=== PATIENT | female | born 1950 | race Caucasian/White ===

== ENCOUNTER → 2021-11-09 | Outpatient (CLI) | payer MEDICARE, SELFPAY ==
[2021-11-09 13:54] LABS: Synovial Fld Mononuclear WBC # 0.486 10^3/ul; Synovial Fld Mononuclear WBC % 61.8 %; Synovial Fld Polynuclear WBC # 0.301 10^3/uL; Synovial Fld Polynuclear WBC % 38.2 %
[2021-11-09 13:58] LABS: RBC /Synovial Fluid 0.003 10^6/uL (0)
[2021-11-09 15:17] LABS: AUTO B FLUID DILUENT BKGD CT WBC <0.1 RBC <0.01 (W<.1,R<.01); Appearance /Synovial Fluid Cloudy (CLEAR); Color / Synovial Fluid Yellow (Pale Yellow); Source / Synovial Fluid R KNEE
[2021-11-09 15:18] LABS: Lymph 6 %; Monocyte /Synovial Fluid 19 %; Neutrophil 35 % (0-25); Other Cell /Synovial Fluid 40 %
[2021-11-09 15:19] LABS: Body Fluid QC Type(s) BF1Q
[2021-11-10 13:18] LABS: Pathologist Comment Reviewed
== END | disposition home or self-care (01) ==
PROVIDERS: PCP Family Medicine; Referring Provider Specialist; Visit Provider Specialist
DX: M25.561 Pain in right knee (principal); M25.461 Effusion, right knee; Z96.651 Presence of right artificial knee joint
CPT/HCPCS: 87015; 87070; 87075; 87101; 87116; 87205; 87206; 89050; 89051

== ENCOUNTER 2023-10-25 11:09 | Inpatient (IN) | payer MEDICARE, SELFPAY ==
[2023-10-25] VITALS (8 sets, daily range): BP systolic 130–159; BP diastolic 57–123; PULSE 32–46; RESP 16–18; TEMP 36.3–36.9; O2SAT 94–98; BMI 41.4; BMI 40.5
--- NOTE | 2023-10-25 11:10 | NURSING ---
NO OLD EKGS
--- NOTE | 2023-10-25 11:32 | RAD_ITS ---
STUDY: X-RAY CHEST REASON FOR EXAM: Female, 73 years old. Near syncope TECHNIQUE: Single AP portable view of the chest. COMPARISON: None. FINDINGS: EKG electrodes are seen. The lungs are clear and expanded. There is no demonstrated pleural abnormality. Normal size heart. Normal mediastinum and jeevan. There is prominence of the pulmonary hilar arteries without peripheral pulmonary vascular congestion, suggesting pulmonary hypertension. There is atherosclerotic calcification of the aortic arch with tortuosity. There are diffuse degenerative changes of the visualized thoracic spine. Normal visualized ribs, clavicles, and shoulders. There is no demonstrated abnormality of the visualized soft tissue structures of the upper abdomen. RAD/Chest 1 View (Portable) IMPRESSION: Prominence of the central pulmonary arteries. Electronically Signed: Joe Guillaume MD at 12:00 EDT ,
--- NOTE | 2023-10-25 11:39 | EX.ED.DYSGE1 ---
HPI History of Present Illness Chief Complaint: Syncope Informant: patient and spouse/S.O. Narrative Narrative: Patient presents to ED referred from PCP office. Intermittent near syncopal episodes for the past few months. States worse with standing. Does not occur all the time. Did have symptoms today. There is been no syncopal episodes. No chest pains or shortness of breath. Saw her PCP today in the office due to symptoms found to heart rate in the 30s. She was sent here for evaluation. History of hypertension and diabetes. She states she does take metoprolol once a day. She takes in the mornings. She denies taking extra doses of this. She last took her metoprolol this morning. She is on 100 mg of metoprolol with no recent changes. She denies taking extra dosing. Prior similar symptoms: No PFSH [facility] Medical History FH: total knee replacement Hypertension Type 1 diabetes Home Medications ?Medication ?Instructions ?Recorded ?Last Taken ?Type atorvastatin 40 mg tablet 40 mg PO DAILY 10/25/23 Unknown History flash glucose scanning reader 10/25/23 Unknown History (FreeStyle Justin 2 [place]) flash glucose sensor (FreeStyle 10/25/23 Unknown History Justin 2 Sensor kit) hydroxyzine HCl 25 mg tablet 25 mg PO BID 10/25/23 Unknown History insulin lispro 100 unit/mL 20 unit subcut TID 10/25/23 Unknown History subcutaneous pen losartan 100 mg tablet 100 mg PO DAILY 10/25/23 Unknown History metoprolol succinate 100 mg 100 mg PO DAILY 10/25/23 Unknown History tablet,extended release 24 hr pantoprazole 40 mg tablet,delayed 40 mg PO DAILY 10/25/23 Unknown History release trazodone 50 mg tablet 50 mg PO QHS 10/25/23 Unknown History venlafaxine 150 mg 75 mg PO DAILY 10/25/23 Unknown History capsule,extended release 24 hr venlafaxine 75 mg capsule,extended 75 mg PO DAILY 10/25/23 Unknown History release 24 hr zolpidem 10 mg tablet 10 mg PO QHS PRN PRN insomnia 10/25/23 Unknown History Allergy/AdvReac Type Severity Reaction Status Date / Time No Known Allergies Allergy Verified 10/25/23 11:09 Family History (Updated 10/25/23 @ 13:[address] Teodoro Mckeon MD) Other Diabetes Family History no significant family his Surgical History H/O: hysterectomy Hx of tonsillectomy Social History Smoking Status: Never smoker ROS ROS ED Constitutional Constitutional ED: Denies chills, fever(s) or sweats Eyes Eyes: Denies change in vision ENT ENT ED: Denies dysphagia or sore throat Cardiovascular Cardiovascular: Reports other Details: Near syncope ; Denies chest pain, leg edema, palpitations or racing heartbeat Respiratory/Chest Respiratory/Chest: Denies cough, dyspnea or dyspnea on exertion Gastrointestinal Gastrointestinal: Denies abdominal pain, diarrhea, nausea or vomiting Genitourinary Genitourinary ED: Denies dysuria, hematuria or urinary frequency Musculoskeletal Musculoskeletal: Denies back pain, extremity pain or neck pain Integumentary Denies rash or wounds Neurologic Neurologic: Denies headache(s), paresthesias or weakness EXAM Physical Exam Const Vital Signs: 10/25/23 11:09 10/25/23 11:13 10/25/23 12:09 Temperature 97.3 F L Temperature Source Temporal Pulse Rate 34 L 39 L Pulse Rate [Lying] Pulse Rate [Sitting (for 1 minute prior to obtaining)] Pulse Rate [Standing (for 1 minute prior to obtaining)] Respiratory Rate 16 18 Respiratory Effort Normal Respiratory Pattern Normal Blood Pressure 158/123 H 130/68 H Blood Pressure [Lying] Blood Pressure [Sitting (for 1 minute prior to obtaining)] Blood Pressure [Standing (for 1 minute prior to obtaining)] Blood Pressure Mean 134 88 Blood Pressure Mean [Lying] Blood Pressure Mean [Sitting (for 1 minute prior to obtaining)] Blood Pressure Mean [Standing (for 1 minute prior to obtaining)] Pulse Ox 94 94 Oxygen Delivery Method Room Air Room Air 10/25/23 12:59 10/25/23 13:00 10/25/23 13:14 Temperature 98 F Temperature Source Pulse Rate 33 L 33 L Pulse Rate [Lying] 32 L Pulse Rate [Sitting (for 1 minute prior to obtaining)] 34 L Pulse Rate [Standing (for 1 minute prior to obtaining)] 40 L Respiratory Rate 16 16 Respiratory Effort Respiratory Pattern Blood Pressure 131/80 H 131/80 H Blood Pressure [Lying] 136/117 H Blood Pressure [Sitting (for 1 minute prior to obtaining)] 139/61 H Blood Pressure [Standing (for 1 minute prior to obtaining)] 159/60 H Blood Pressure Mean 97 97 Blood Pressure Mean [Lying] 123 Blood Pressure Mean [Sitting (for 1 minute prior to obtaining)] 87 Blood Pressure Mean [Standing (for 1 minute prior to obtaining)] 93 Pulse Ox 98 98 Oxygen Delivery Method Room Air Positive well nourished and well developed General Appearance ED: well developed and NAD HEENT Reports moist mucous membranes normocephalic and atraumatic Eyes EOMs intact bilaterally and conjunctivae normal General Eye ED: Yes normal appearance of both eyes; Negative for pale conjunctiva Neck no lymphadenopathy and supple General: Negative for tenderness Chest Wall Chest: Negative for tenderness Resp normal respiratory effort and normal air movement Effort and Inspection: symmetric chest movement; Negative for respiratory distress Cardio regular rhythm and no murmurs Rate: bradycardia Peripheral Pulses: pulses 2+ throughout GI normal to inspection, nondistended, normoactive bowel sounds and non-tender Palpation: Negative for guarding or rebound tenderness present Back/Spine no CVA tenderness and no thoracic nor lumbar tenderness Extremity normal to inspection General Extremety ED: Negative for edema or tenderness General Extremity: Negative for edema Neuro oriented x3, CN's II-XII intact bilaterally and no sensory deficits noted Sensorium / Orientation: awake and alert Skin no rashes or lesions noted and no wounds MDM MDM MDM Narrative Medical decision making narrative: Interventions / MDM: Differential diagnosis: Bradycardia, near syncope Diagnosis considered but do not suspect: N/A My EKG interpretation: Junctional rhythm rate 33. No clear P waves can be appreciated. Imaging independently reviewed and interpreted by myself: 1 view chest x-ray: External documents reviewed: N/A Test considered but not ordered:N/A ED course: Patient bradycardia with intermittent near syncope episodes. Has been no syncopal episodes. Blood pressure stable systolic 140s. EKG regular ventricular escape rhythms. Patient had pacer pads for preparation. She is not symptomatic sitting there. Chest x-ray 1 view, laboratory studies sent. Will discuss with cardiology service. 1220: d/w Dr. Ortega, EKG sent via backline for him to review. Feels this is a junctional bradycardia. Her blood pressure stable recommended admission to medicine service on a monitor. Holding home metoprolol, will eventually need change of her blood pressure medicines. He will follow as a consult. 1255: Lab work notes renal insufficiency creatinine 1.78. GFR of 30. Discussed with patient she states a month ago PCP sin labs and told her she had early kidney disease however we do not know the number for comparison. I will start gentle fluids. She has no recent vomiting or diarrhea. TSH also elevated, free T4 level sent and pending. Will discuss with hospitalist service for admission for bradycardia. Discussed with hospitalist Dr. Mckeon for admission to PCU. Re-evaluation: stable Disposition discussed with patient/family/significant other: Patient and significant other Case discussed with consulting clinician: Cardiology, hospitalist This note was generated with [employer] dictation software. It may contain incorrect words, spelling, and punctuation that were not noted in checking the note before signing. Lab Data Attestation: I reviewed the patient's lab results. Labs: Laboratory Results - last 24 hr 10/25/23 10/25/23 11:28 13:39 WBC 13.5 H RBC 4.68 Hgb 12.8 Hct 40.8 MCV 87.2 MCH 27.4 MCHC 31.4 L RDW Std Deviation 44.5 H RDW Coeff of Betina 13.8 Plt Count 220 MPV 10.8 Immature Gran % (Auto) 1.000 H Neut % (Auto) 80.6 H Lymph % (Auto) 9.4 L [place] % (Auto) 7.2 Eos % (Auto) 1.1 Baso % (Auto) 0.7 Absolute Neuts (auto) 10.9 H Absolute Lymphs (auto) 1.26 Nucleated RBC % 0 PT 14.6 INR 1.1 APTT 30.9 Sodium 139 Potassium 4.8 Chloride 103 Carbon Dioxide 29.0 Anion Gap 7 BUN 42 H Creatinine 1.78 H Estim Creat Clear Calc 31.14 Est GFR (MDRD) Af Amer 36 L Est GFR (MDRD) Non-Af 30 L BUN/Creatinine Ratio 23.6 H Glucose 137 H Calcium 9.4 Magnesium 1.7 TSH 5.920 H Free T4 1.23 Urine Color Straw Urine Clarity Sl. Cloudy Urine pH 6.0 Ur Specific [place] 1.020 Urine Protein 30 H Urine Glucose (UA) Normal Urine Ketones Negative Urine Occult Blood Negative Urine Nitrite Negative Urine Bilirubin 1 H Urine Urobilinogen 1 H Ur Leukocyte Esterase 500 H Urine RBC 0-5 SEEN Urine WBC 25-50 SEEN Ur Squamous Epith Cells 0-5 SEEN Urine Bacteria RARE Urine Mucus 0 SEEN Radiography Diagnostic Testing: Clinical Impression(s) from Imaging Studies Chest X-Ray 10/25/23 11:32 IMPRESSION: Prominence of the central pulmonary arteries. Electronically Signed: Joe Guillaume MD at 12:00 EDT , Discharge Plan Dx/Rx/DC Orders Clinical Impression: Junctional bradycardia, Near syncope, Renal insufficiency, TSH elevation Disposition Disposition: Acute Care Hospital [facility] Discharge Date/Time: 10/25/23 13:52
[2023-10-25 11:42] LABS: Absolute Lymphocyte Count 1.26 X10^3/uL (0.83-4.51); Absolute Neutrophil Count 10.9 X10^3/uL (2.0-7.7); Basophil# 0.09 X10^3/uL; Basophil% 0.7 % (0-1); Eosinophil# 0.15 X10^3/uL; Eosinophils% 1.1 % (0-5); Hematocrit 40.8 % (37-47); Hemoglobin 12.8 g/dL (12.0-15.0); Lymphocyte # 1.26 X10^3/ul (0.83-4.51); Lymphocyte % 9.4 % (19-41); Mean Corp Hgb Conc 31.4 g/dL (32-36); Mean Corpuscular Hgb 27.4 pg (27.0-32.0); Mean Corpuscular Volume 87.2 fL (81-99); Mean Platelet Vol. 10.8 fl (6.2-12.0); Monocyte# 0.97 X10^3/uL; Monocyte% 7.2 % (0-10); NRBC Flagged by Analyzer 0 % (0-5); Neutrophil # 10.87 X10^3/uL (2.7-7.7); Neutrophil % 80.6 % (47-70); Platelet Count 220 K/mm3 (150-450); RBC Distribution Width CV 13.8 % (11.6-14.6); RBC Distribution Width SD 44.5 fl (35.1-43.9); Red Blood Count 4.68 M/mm3 (4.2-5.4); White Blood Count 13.5 K/mm3 (4.4-11.0)
[2023-10-25 11:45] LABS: International Normalized Ratio 1.1; Prothrombin Time (Protime)PT. 14.6 SECONDS (11.7-14.9)
[2023-10-25 11:46] LABS: Partial Thromboplast Time 30.9 Seconds (24.1-36.2)
[2023-10-25 12:35] LABS: Anion Gap 7 (5-15); BUN 42 mg/dL (7-18); BUN/Creat Ratio 23.6 RATIO (10-20); Calcium,Total 9.4 mg/dL (8.5-10.1); Chloride 103 mmol/L (98-107); Creatinine, Serum 1.78 mg/dL (0.55-1.02); EST Glomerular Filtration Rate 30 mL/min (>60); Est Glom Filt Rate - Afr Amer 36 mL/min (>60); Estimated Creatinine Clearance 31.14 ml/min; Glucose 137 mg/dL (74-106); Magnesium 1.7 mg/dL (1.6-2.6); Potassium 4.8 mmol/L (3.5-5.1); Sodium Level 139 mmol/L (136-145)
--- NOTE | 2023-10-25 12:59 | NURSING ---
DR ALKA HERNANDEZ
[2023-10-25] MEDS: 0.9% Normal Saline (1000mL) 1,000 ML 150 ML IV (13:06)
--- NOTE | 2023-10-25 13:15 | NURSING ---
PCU OBS KOBAYONIS JUNCTIONAL BRADYCARDIA, NEAR SYNCOPE
[2023-10-25 13:44] LABS: Mucous, Urine 0 SEEN /hpf (<or=2+)
[2023-10-25 13:49] LABS: Color, Urine Straw (Yellow); Glucose, Dipstick Normal (Normal); Ketone-Dipstick Negative (Negative); Leukocyte Esterase-Dipstick 500 /ul (Negative); Nitrite-Dipstick Negative (Negative); Occult Blood-Urine Negative /ul (Negative); Protein-Dipstick 30 mg/dl (Negative); Urine Clarity Sl. Cloudy (Clear); Urine Urobilinogen 1 mg/dl (Normal)
[2023-10-25 13:50] LABS: T4 Free Direct 1.23 ng/dL (0.76-1.46)
[2023-10-25 13:50] LABS: Urine Bilirubin Dipstick 1 mg/dL (Negative)
--- NOTE | 2023-10-25 13:52 | PCM.HP.STD ---
HPI - General General Date of Admission: 10/25/23 HPI Narrative CHIQUI OSULLIVAN, is a 73 F who presents to the hospital with intermittent near syncopal episodes for the last month or so. She states that she does not get this every day if she is fairly active and it usually last for couple of minutes and it does not even happen multiple times a day. She has not changed any medications recently and states that she does not feel ill, she says that she stays fairly hydrated. We do not have any previous lab work in our system and she says that her doctor told her that she was starting on having early kidney disease but she has noted her creatinine is on the outpatient side. Here today is 1.78. She has not had a full syncopal episode but EKG showed a potential junctional rhythm with no heart block. Orthostatics are unremarkable. She does have a leukocytosis of an unknown etiology at this time, chest x-ray was unremarkable. Will obtain a UA. She is on long-acting metoprolol and losartan both of which will be held. She denies any lightheadedness or dizziness currently she denies any chest pain or shortness of breath. [facility] Medical History FH: total knee replacement Hypertension Type 1 diabetes Home Medications ?Medication ?Instructions ?Recorded ?Last Taken ?Type atorvastatin 40 mg tablet 40 mg PO DAILY 10/25/23 Unknown History flash glucose scanning reader 10/25/23 Unknown History (FreeStyle Justin 2 [place]) flash glucose sensor (FreeStyle 10/25/23 Unknown History Justin 2 Sensor kit) hydroxyzine HCl 25 mg tablet 25 mg PO BID 10/25/23 Unknown History insulin lispro 100 unit/mL 20 unit subcut TID 10/25/23 Unknown History subcutaneous pen losartan 100 mg tablet 100 mg PO DAILY 10/25/23 Unknown History metoprolol succinate 100 mg 100 mg PO DAILY 10/25/23 Unknown History tablet,extended release 24 hr pantoprazole 40 mg tablet,delayed 40 mg PO DAILY 10/25/23 Unknown History release trazodone 50 mg tablet 50 mg PO QHS 10/25/23 Unknown History venlafaxine 150 mg 75 mg PO DAILY 10/25/23 Unknown History capsule,extended release 24 hr venlafaxine 75 mg capsule,extended 75 mg PO DAILY 10/25/23 Unknown History release 24 hr zolpidem 10 mg tablet 10 mg PO QHS PRN PRN insomnia 10/25/23 Unknown History Allergy/AdvReac Type Severity Reaction Status Date / Time No Known Allergies Allergy Verified 10/25/23 11:09 Family History (Updated 10/25/23 @ 13:[address] Teodoro Mckeon MD) Other Diabetes Family History no significant family his Surgical History H/O: hysterectomy Hx of tonsillectomy Social History Smoking Status: Never smoker ROS Constitutional Constitutional: Denies chills, fatigue, fever(s) or malaise Eyes Eyes: Denies blurry vision ENT HEENT: Denies headache(s) or nasal discharge Cardiovascular Cardiovascular: Reports lightheadedness; Denies chest pain, dyspnea on exertion or syncope Respiratory/Chest Respiratory/Chest: Denies cough, shortness of breath at rest or shortness of breath with exertion Gastrointestinal Gastrointestinal: Denies constipation, diarrhea, nausea or vomiting Genitourinary Genitourinary: Denies dysuria Neurologic Neurologic: Reports dizziness; Denies focal weakness, numbness or tremor(s) Psychiatric Psychiatric: Denies anxiety or depression Vital Signs Vital Signs Vital Signs: 10/25/23 11:09 10/25/23 11:13 10/25/23 12:09 Temperature 97.3 F L Temperature Source Temporal Pulse Rate 34 L 39 L Pulse Rate [Lying] Pulse Rate [Sitting (for 1 minute prior to obtaining)] Pulse Rate [Standing (for 1 minute prior to obtaining)] Respiratory Rate 16 18 Respiratory Effort Normal Respiratory Pattern Normal Blood Pressure 158/123 H 130/68 H Blood Pressure [Lying] Blood Pressure [Sitting (for 1 minute prior to obtaining)] Blood Pressure [Standing (for 1 minute prior to obtaining)] Blood Pressure Mean 134 88 Blood Pressure Mean [Lying] Blood Pressure Mean [Sitting (for 1 minute prior to obtaining)] Blood Pressure Mean [Standing (for 1 minute prior to obtaining)] Pulse Ox 94 94 Oxygen Delivery Method Room Air Room Air 10/25/23 12:59 10/25/23 13:00 10/25/23 13:14 Temperature 98 F Temperature Source Pulse Rate 33 L 33 L Pulse Rate [Lying] 32 L Pulse Rate [Sitting (for 1 minute prior to obtaining)] 34 L Pulse Rate [Standing (for 1 minute prior to obtaining)] 40 L Respiratory Rate 16 16 Respiratory Effort Respiratory Pattern Blood Pressure 131/80 H 131/80 H Blood Pressure [Lying] 136/117 H Blood Pressure [Sitting (for 1 minute prior to obtaining)] 139/61 H Blood Pressure [Standing (for 1 minute prior to obtaining)] 159/60 H Blood Pressure Mean 97 97 Blood Pressure Mean [Lying] 123 Blood Pressure Mean [Sitting (for 1 minute prior to obtaining)] 87 Blood Pressure Mean [Standing (for 1 minute prior to obtaining)] 93 Pulse Ox 98 98 Oxygen Delivery Method Room Air Weight Weight: 226 lb 6.636 oz Body Mass Index (BMI) 41.4 Physical Exam Narrative General: Alert, Oriented x3, Cooperative, No apparent distress HEENT: Atraumatic, PERRLA, EOMI, Normocephalic Oral: Moist Mucosa Neck: Supple, No JVD Lungs: Diminished, Normal air movement, No rhonchi, No wheeze, No rales Cardiovascular: Regular rate, Regular Rhythm, Normal S1, Normal S2, No murmurs Abdomen: Soft, Non Tender, Non-Distended, No Hepato-splenomegaly Extremities: No edema, Capillary Refill Less than 3 Seconds Skin: No rashes, No breakdown Musculoskeletal: No Tenderness to Palpation of Joints or Extremities Neurological: No focal neurological deficits, Motor Exam 5/5 strength throughout, Sensory exam intact to light touch and pain Psych/Mental Status: Normal Affect, Appropriate Results Lab / Micro Data 10/25/23 11:28 10/25/23 11:28 Labs: Laboratory Results - last 24 hr 10/25/23 11:28: WBC 13.5 H, RBC 4.68, Hgb 12.8, Hct 40.8, MCV 87.2, MCH 27.4, MCHC 31.4 L, RDW Std Deviation 44.5 H, RDW Coeff of Bet[place] 13.8, Plt Count 220, MPV 10.8, Immature Gran % (Auto) 1.000 H, Neut % (Auto) 80.6 H, Lymph % (Auto) 9.4 L, [place] % (Auto) 7.2, Eos % (Auto) 1.1, Baso % (Auto) 0.7, Absolute Neuts (auto) 10.9 H, Absolute Lymphs (auto) 1.26, Nucleated RBC % 0, PT 14.6, INR 1.1, APTT 30.9, Sodium 139, Potassium 4.8, Chloride 103, Carbon Dioxide 29.0, Anion Gap 7, BUN 42 H, Creatinine 1.78 H, Estim Creat Clear Calc 31.14, Est GFR (MDRD) Af Amer 36 L, Est GFR (MDRD) Non-Af 30 L, BUN/Creatinine Ratio 23.6 H, Glucose 137 H, Calcium 9.4, Magnesium 1.7, TSH 5.920 H, Free T4 1.23 10/25/23 13:39: Urine Color Straw, Urine Clarity Sl. Cloudy, Urine pH 6.0, Ur Specific [place] 1.020, Urine Protein 30 H, Urine Glucose (UA) Normal, Urine Ketones Negative, Urine Occult Blood Negative, Urine Nitrite Negative, Urine Bilirubin 1 H, Urine Urobilinogen 1 H, Ur Leukocyte Esterase 500 H Imaging Radiology Impression Chest X-Ray 10/25/23 11:32 IMPRESSION: Prominence of the central pulmonary arteries. Electronically Signed: Joe Guillaume MD at 12:00 EDT , Assessment & Plan Assessment/Plan (1) Near syncope: PLAN: Plan 1. Near syncope with bradycardia/essential HTN/HLD ? Not orthostatic ? Continue with IV fluids ? Will repeat BMP in the morning to determine whether or not she has an GODFREY or not ? Will hold metoprolol and losartan ? Will obtain an echo ? Monitor blood pressures and make adjustments as necessary ? Continue with Lipitor 2. DM2 ? Continue with her home insulin ? Accu-Cheks ACHS ? Sign scale insulin ? Will monitor make adjustments as necessary 3. GERD ? Stable ? Continue with PPI 4. Anxiety/depression ? Stable ? Continue with Effexor 5. Elevated TSH ? She does not have a history of hypothyroidism ? T4 is pending 6. Leukocytosis ? Unclear etiology ? UA pending DVT: Ambulation 75 minutes was spent on direct patient care, including documentation as well as chart review and collaboration with colleagues Charges/Coding Visit Charges Inpatient E&M: 58129 Init Hosp L3
[2023-10-25 14:01] LABS: Bacteria RARE /hpf (None Seen)
--- NOTE | 2023-10-25 14:01 | ECHOD_ITS ---
Reason For Study: SYNCOPE Procedure This was a 2D Doppler, Color Flow transthoracic echocardiogram. Myocardial strain analysis was performed in this exam to aid in the assessment of cardiac function. Exam performed portable in patient room. Left Ventricle Normal LV size. Severe concentric left ventricular hypertrophy. Left ventricular systolic function is normal. The left ventricular ejection fraction is 70 %. Stage 3 diastolic dysfunction. No regional wall motion abnormalities noted. Right Ventricle Normal RV size. Normal systolic function. Atria Normal left atrium. Normal right atrium. Mitral Valve There is moderate mitral annular calcification. Mild (1+) eccentric mitral valve insufficiency. Tricuspid Valve Normal tricuspid valve. Mild tricuspid valve insufficiency. Pulmonary artery systolic pressure is 21 mmHg. Aortic Valve Trisinus/trileaflet aortic valve. Mild focal aortic valve calcification. Pulmonic Valve Normal pulmonic valve. Great Vessels Normal aortic root. The pulmonary artery is normal size. Normal inferior vena cava. Pericardium/Pleural No pericardial effusion. MMode/2D Measurements & Calculations LVIDd: 4.9 cm IVSd: 1.7 cm LVOT diam: 1.9 cm LVIDs: 2.2 cm LVPWd: 1.5 cm LVOT area: 2.7 cm2 RVDd: 3.4 cm FS: 54.6 % Ao root diam: 3.4 cm LAV(MOD-bp): 58.4 ml LVAd ap4: 18.3 cm2 LAV(MOD-bp) Indexed: 29.0 ml/m2 LVLd ap4: 6.4 cm LAV(MOD-sp2): 69.5 ml EDV(MOD-sp4): 42.1 ml LAV(MOD-sp4): 44.9 ml EDV(sp4-el): 44.2 ml LVAs ap4: 8.2 cm2 LVLs ap4: 5.0 cm ESV(MOD-sp4): 11.6 ml ESV(sp4-el): 11.4 ml EF(MOD-sp4): 72.6 % EF(sp4-el): 74.2 % LVAd ap2: 20.6 cm2 SV(MOD-sp4): 30.6 ml SV(MOD-sp2): 34.4 ml LVLd ap2: 7.1 cm EDV(MOD-sp2): 50.1 ml EDV(sp2-el): 51.0 ml LVAs ap2: 10.2 cm2 LVLs ap2: 5.9 cm ESV(MOD-sp2): 15.7 ml ESV(sp2-el): 15.0 ml EF(MOD-sp2): 68.7 % SV(sp4-el): 32.8 ml LA dimension(2D): 3.8 cm LA A4 area: 16.8 cm2 RA A4 area: 16.3 cm2 TAPSE: 1.4 cm Time Measurements MV dec time: 0.23 sec Doppler Measurements & Calculations MV E max andrew: 137.6 cm/sec Lat Peak E' Andrew: 6.9 cm/sec Med Peak E' Andrew: 5.2 cm/sec MV A max andrew: 20.2 cm/sec E/E' lat: 20.1 E/E' med: 26.7 MV E/A: 6.8 MV V2 max: 132.6 cm/sec Ao V2 max: 141.3 cm/sec MV max P.0 mmHg MV dec slope: 596.7 cm/sec2 Ao max P.0 mmHg MV V2 mean: 45.5 cm/sec Ao V2 mean: 111.3 cm/sec MV mean P.2 mmHg Ao mean P.2 mmHg MV V2 VTI: 52.6 cm Ao V2 VTI: 30.9 cm AV (velocity ratio): 0.92 MVA(VTI): 1.5 cm2 ARELI(I,D): 2.5 cm2 ARELI(V,D): 2.2 cm2 LV V1 max: 111.2 cm/sec SV(LVOT): 77.5 ml PA V2 max: 85.5 cm/sec LV V1 max P.9 mmHg PA max PG (full): 1.7 mmHg LV V1 mean P.8 mmHg LV V1 mean: 76.8 cm/sec LV V1 VTI: 28.3 cm TR max andrew: 215.9 cm/sec TR max P.6 mmHg ECHO/Echo Complete Interpretation Summary Normal LV size. Left ventricular systolic function is normal. The left ventricular ejection fraction is 70 %. Stage 3 diastolic dysfunction. Severe concentric left ventricular hypertrophy. Ordering Physician: Teodoro Mckeon Performed By: Ritika Pinon RDCS
[2023-10-25 14:02] LABS: White Blood Cells 25-50 SEEN /hpf (0-5)
[2023-10-25 14:03] LABS: Red Blood Cells-Urine 0-5 SEEN /hpf (0-5); Squamous Epithelial Cells - UA 0-5 SEEN /hpf (5-10)
[2023-10-25] MEDS: 0.9% Normal Saline (1000mL) 1,000 ML 100 ML IV (14:29)
[2023-10-25] MEDS: Ceftriaxone 1 GM/50 ML BAG IV (14:45)
[2023-10-25 17:06] LABS: Bedside Glucose 55 mg/dL (74-106)
[2023-10-25 17:27] LABS: Bedside Glucose 56 mg/dL (74-106)
[2023-10-25 18:52] LABS: Bedside Glucose 93 mg/dL (74-106)
[2023-10-25] MEDS: Zolpidem Tartrate 5 MG Tablet PO (22:12)
[2023-10-25] MEDS: hydrOXYzine PAM 25 MG Capsule PO (22:12)
[2023-10-25 22:33] LABS: Bedside Glucose 115 mg/dL (74-106)
[2023-10-26] VITALS (9 sets, daily range): BP systolic 133–210; BP diastolic 55–98; PULSE 53–59; RESP 18; TEMP 36.2–36.4; O2SAT 93–96
[2023-10-26] MEDS: hydrALAZINE 20 MG/ML Vial 10 MG IV ×3 (04:42→21:50)
[2023-10-26] MEDS: 0.9% Saline Lock 10 ML Syringe IV (04:43)
[2023-10-26 06:07] LABS: Absolute Lymphocyte Count 1.61 X10^3/uL (0.83-4.51); Absolute Neutrophil Count 7.8 X10^3/uL (2.0-7.7); Basophil# 0.08 X10^3/uL; Basophil% 0.7 % (0-1); Eosinophil# 0.29 X10^3/uL; Eosinophils% 2.7 % (0-5); Hemoglobin 12.8 g/dL (12.0-15.0); Lymphocyte # 1.61 X10^3/ul (0.83-4.51); Lymphocyte % 14.9 % (19-41); Mean Corpuscular Volume 87.5 fL (81-99); Mean Platelet Vol. 10.8 fl (6.2-12.0); Monocyte# 0.95 X10^3/uL; Monocyte% 8.8 % (0-10); NRBC Flagged by Analyzer 0 % (0-5); Neutrophil # 7.83 X10^3/uL (2.7-7.7); Neutrophil % 72.5 % (47-70); Platelet Count 183 K/mm3 (150-450); RBC Distribution Width CV 13.8 % (11.6-14.6); RBC Distribution Width SD 44.4 fl (35.1-43.9); Red Blood Count 4.57 M/mm3 (4.2-5.4); White Blood Count 10.8 K/mm3 (4.4-11.0)
[2023-10-26 07:21] LABS: Anion Gap 7 (5-15); BUN 39 mg/dL (7-18); BUN/Creat Ratio 28.3 RATIO (10-20); Calcium,Total 9.3 mg/dL (8.5-10.1); Chloride 105 mmol/L (98-107); Creatinine, Serum 1.38 mg/dL (0.55-1.02); EST Glomerular Filtration Rate 40 mL/min (>60); Est Glom Filt Rate - Afr Amer 48 mL/min (>60); Estimated Creatinine Clearance 39.69 ml/min; Glucose 37 mg/dL (74-106); Potassium 4.1 mmol/L (3.5-5.1); Sodium Level 138 mmol/L (136-145)
[2023-10-26] MEDS: Pantoprazole Sodium 40 MG Tablet PO (08:25)
[2023-10-26] MEDS: hydrOXYzine PAM 25 MG Capsule PO ×2 (08:25→21:29)
[2023-10-26] MEDS: Venlafaxine XR 75 MG Capsule PO (08:25)
[2023-10-26] MEDS: Ceftriaxone 1 GM/50 ML BAG IV (08:25)
[2023-10-26] MEDS: Atorvastatin Calcium 40 MG Tablet PO (08:25)
--- NOTE | 2023-10-26 08:47 | PN.HOSP_ITS ---
Reason for Visit Reason for Visit: Diagnoses Syncope and collapse (10/25/23) Subjective Subjective Feels ok. Denies complaints. Objective Data Objective Data Vital Signs: Vital Signs Temp Pulse Resp BP Pulse Ox O2 Del Method 36.4 C L 57 L 18 189/72 H 96 Room Air 10/26/23 07:39 10/26/23 07:39 10/26/23 07:39 10/26/23 07:39 10/26/23 07:39 10/26/23 07:39 Oxygen Delivery Method Room Air Weight: 100.6 kg Body Mass Index (BMI) 40.5 Intake & Output: Intake and Output for Last 24 Hours 10/24/23 10/25/23 10/26/23 23:59 23:59 23:59 Intake Total 1442.50 / 1442.50 Balance 1442.50 / 1442.50 Lab / Micro Data Attestation: I reviewed the patient's lab results. 10/26/23 05:55 10/26/23 05:45 Labs: Laboratory Results - last 24 hr 10/25/23 11:28: WBC 13.5 H, RBC 4.68, Hgb 12.8, Hct 40.8, MCV 87.2, MCH 27.4, M CHC 31.4 L, RDW Std Deviation 44.5 H, RDW Coeff of Betina 13.8, Plt Count 220, MPV 10.8, Immature Gran % (Auto) 1.000 H, Neut % (Auto) 80.6 H, Lymph % (Auto) 9.4 L , [place] % (Auto) 7.2, Eos % (Auto) 1.1, Baso % (Auto) 0.7, Absolute Neuts (auto) 10.9 H, Absolute Lymphs (auto) 1.26, Nucleated RBC % 0, PT 14.6, INR 1.1, APTT 30.9, Sodium 139, Potassium 4.8, Chloride 103, Carbon Dioxide 29.0, Anion Gap 7, BUN 42 H, Creatinine 1.78 H, Estim Creat Clear Calc 31.14, Est GFR (MDRD) Af Amer 36 L, Est GFR (MDRD) Non-Af 30 L, BUN/Creatinine Ratio 23.6 H, Glucose 137 H, Calcium 9.4, Magnesium 1.7, TSH 5.920 H, Free T4 1.23 10/25/23 13:39: Urine Color Straw, Urine Clarity Sl. Cloudy, Urine pH 6.0, Ur Specific [place] 1.020, Urine Protein 30 H, Urine Glucose (UA) Normal, Urine Ketones Negative, Urine Occult Blood Negative, Urine Nitrite Negative, Urine Bilirubin 1 H, Urine Urobilinogen 1 H, Ur Leukocyte Esterase 500 H, Urine RBC 0- 5 SEEN, Urine WBC 25-50 SEEN, Ur Squamous Epith Cells 0-5 SEEN, Urine Bacteria RARE, Urine Mucus 0 SEEN 10/25/23 16:48: POC Glucose 55 L 10/25/23 17:10: POC Glucose 56 L 10/25/23 17:38: POC Glucose 93 10/25/23 22:04: POC Glucose 115 H 10/26/23 05:45: Sodium 138, Potassium 4.1, Chloride 105, Carbon Dioxide 26.0, Anion Gap 7, BUN 39 H, Creatinine 1.38 H, Estim Creat Clear Calc 39.69, Est GFR (MDRD) Af Amer 48 L, Est GFR (MDRD) Non-Af 40 L, BUN/Creatinine Ratio 28.3 H, G lucose 37 L*, Calcium 9.3 10/26/23 05:55: WBC 10.8, RBC 4.57, Hgb 12.8, Hct 40.0, MCV 87.5, MCH 28.0, MCHC 32.0, RDW Std Deviation 44.4 H, RDW Coeff of Bet[place] 13.8, Plt Count 183, MPV 10.8, Immature Gran % (Auto) 0.400, Neut % (Auto) 72.5 H, Lymph % (Auto) 14.9 L, [place] % (Auto) 8.8, Eos % (Auto) 2.7, Baso % (Auto) 0.7, Absolute Neuts (auto) 7.8 H, Absolute Lymphs (auto) 1.61, Nucleated RBC % 0 Radiography Diagnostic Testing: Radiology Impression Chest X-Ray 10/25/23 11:32 IMPRESSION: Prominence of the central pulmonary arteries. Electronically Signed: Joe Guillaume MD at 12:00 EDT , Echocardiogram 10/25/23 14:01 Interpretation Summary Normal LV size. Left ventricular systolic function is normal. The left ventricular ejection fraction is 70 %. Stage 3 diastolic dysfunction. Severe concentric left ventricular hypertrophy. Ordering Physician: Teodoro Mckeon Performed By: Ritika Pinon RDCS Rhythm Strip Rhythm Strip: A-fib EKG Follow-up EKG: Attestation: I personally reviewed and interpreted this EKG as follows: Prior EKG tracings: available for review (atrial fibrillation. ) Physical Exam Const alert and no apparent distress HEENT head/scalp atraumatic and moist oral mucous membranes Resp normal respiratory effort, no retractions, no use of accessory muscles and clear to auscultation bilaterally Cardio regular rate, regular rhythm, S1 normal heart sound and S2 normal heart sound GI normal to inspection, nondistended, normoactive bowel sounds, soft to palpation, non-tender and non-distended Extremity normal to inspection and full ROM Neuro Sensorium / Orientation: awake and alert Assessment & Plan Assessment/Plan (1) Near syncope: PLAN: Plan Near syncope with bradycardia/essential * Not orthostatic. Bradycardia * improved * continue to hold metoprolol succinate * Echo shows an EF 70% Atrial fibrillation * Unclear if new. Patient said she has had a h/o ablation years ago in [place], but denies prior h/o afib. Had never been on OAC. * [id number] of 4. I recommended anticoagulation to help mitigate risk of CVA. She was agreeable. Start apixaban. Abnormal UA * unclear if actual UTI. Continue CTX. Follow up UCx. DM2 * Hypoglycemia this AM. * On scheduled log 20 TID, will hold * on SSI Elevated TSH: * FT4: WNL. no additional work up Chronic conditions: * GERD: PPI * Anxiety/depression: Effexor * Elevated TSH DVT: not indicated as pt will be anticoagulated. Disposition: monitor overnight. If does well, then can likely discharge on the . Unclear if she will require metoprolol, but at reduced dosing. Charges/Coding Visit Charges Inpatient E&M: 17207 Subs Hosp L2
[2023-10-26 08:48] LABS: Bedside Glucose 98 mg/dL (74-106)
[2023-10-26] MEDS: Insulin Lispro 100 UNIT/ML INSULN.PEN SC ×3 (11:02→21:34)
[2023-10-26 11:23] LABS: Bedside Glucose 242 mg/dL (74-106)
--- NOTE | 2023-10-26 15:12 | CASEMGMT ---
Met with patient to complete DIAZ form. DIAZ form explained to patient who voiced understanding and signed form. Original form placed in pt?s chart and copy provided to patient. Isha James, Discharge Planning Asst
[2023-10-26 16:45] LABS: Bedside Glucose 389 mg/dL (74-106)
[2023-10-26 17:40] LABS: Hemoglobin A1c 6.8 % (3.8-5.6)
[2023-10-26] MEDS: MENTHOL 226.8 GM JAR 1 APPLIC TOPICAL (21:27)
[2023-10-26] MEDS: traZODone 50 MG Tablet PO (21:29)
[2023-10-26] MEDS: APIXABAN 5 MG TABLET PO (21:29)
[2023-10-26] MEDS: Zolpidem Tartrate 5 MG Tablet PO (21:49)
[2023-10-26] MEDS: Acetaminophen 325 MG Tablet 650 MG PO (21:49)
[2023-10-26 23:04] LABS: Bedside Glucose 204 mg/dL (74-106)
[2023-10-27 03:45] VITALS: BP 199/86; PULSE 82; RESP 18; TEMP 35.6; O2SAT 94
[2023-10-27 04:05] VITALS: BP 199/86; PULSE 86
[2023-10-27] MEDS: hydrALAZINE 20 MG/ML Vial 10 MG IV (04:05)
[2023-10-27] MEDS: 0.9% Saline Lock 10 ML Syringe IV (04:05)
[2023-10-27] MEDS: Levothyroxine 100 MCG Tablet 200 MCG PO (06:37)
[2023-10-27 07:01] LABS: Bedside Glucose 79 mg/dL (74-106)
--- NOTE | 2023-10-27 07:39 | PN.HOSP_ITS ---
Reason for Visit Reason for Visit: Diagnoses Syncope and collapse (10/26/23) Subjective Subjective Feels well. No issues overnight. Objective Data Objective Data Vital Signs: Vital Signs Temp Pulse Resp BP Pulse Ox O2 Del Method 35.6 C L 86 18 199/86 H 94 Room Air 10/27/23 03:45 10/27/23 04:05 10/27/23 03:45 10/27/23 04:05 10/27/23 03:45 10/27/23 03:45 Oxygen Delivery Method Room Air Weight: 100.6 kg Body Mass Index (BMI) 40.5 Intake & Output: Intake and Output for Last 24 Hours 10/25/23 10/26/23 10/27/23 23:59 23:59 23:59 Intake Total 1442.50 / 1442.50 950 / 1200 450 / 450 Balance 1442.50 / 1442.50 950 / 1200 450 / 450 Lab / Micro Data 10/26/23 05:55 10/26/23 05:45 Labs: Laboratory Results - last 24 hr 10/26/23 05:55: Hemoglobin A1c 6.8 H 10/26/23 08:23: POC Glucose 98 10/26/23 10:58: POC Glucose 242 H 10/26/23 16:24: POC Glucose 389 H 10/26/23 21:32: POC Glucose 204 H 10/27/23 06:40: POC Glucose 79 Micro: Microbiology 10/25/23 13:39 Urine, Clean Catch Urine Culture - Final Mixed Gram Pos & Gram Neg Org Rhythm Strip Rhythm Strip: A-fib Physical Exam Const alert and no apparent distress Resp normal respiratory effort, no retractions, no use of accessory muscles and clear to auscultation bilaterally Cardio regular rate, regular rhythm, S1 normal heart sound and S2 normal heart sound GI normal to inspection, nondistended, normoactive bowel sounds, soft to palpation, non-tender and non-distended Extremity no clubbing, cyanosis or edema Neuro Sensorium / Orientation: awake and alert Assessment & Plan Assessment/Plan (1) Near syncope: PLAN: Plan Near syncope * Not orthostatic. May have been due to bradycardia Bradycardia * improved * patient was taking metoprolol succinate 100/d. Will resume, but at a lower dose of 12.5/d * Echo shows an EF 70% HTN accelerated * improved * already on losartan 100. * add amlodipine 5 Atrial fibrillation * Patient now states that she has had afib previously. Unclear if new. Patient said she has had a h/o ablation years ago in [place], but denies prior h/o afib. Had never been on OAC. Has not followed up with cardiology in years, but has plans to see Dr. Ortega * [id number] of 4. I recommended anticoagulation to help mitigate risk of CVA. She was agreeable. Start apixaban. * Resume metoprolol succinate, but at a lower dose, 12.5 (down from 100 given the bradycardia) Abnormal UA * UCx showed mixed organisms. DC abx. DM2 * Hypoglycemia this AM. * On scheduled log 20 TID, will hold * on SSI * a1c 6.8 Elevated TSH: * FT4: WNL. no additional work up Chronic conditions: * GERD: PPI * Anxiety/depression: Effexor * Elevated TSH DVT: not indicated as pt will be anticoagulated. Disposition: to home.
[2023-10-27 08:34] VITALS: BP 158/62; PULSE 84; RESP 16; TEMP 36.4; O2SAT 93
[2023-10-27] MEDS: hydrOXYzine PAM 25 MG Capsule PO (08:36)
[2023-10-27] MEDS: amLODIPine 5 MG Tablet PO (08:36)
[2023-10-27] MEDS: Losartan Potassium 100 MG Tablet PO (08:36)
[2023-10-27] MEDS: APIXABAN 5 MG TABLET PO (08:36)
[2023-10-27] MEDS: Pantoprazole Sodium 40 MG Tablet PO (08:36)
[2023-10-27] MEDS: Venlafaxine XR 75 MG Capsule PO (08:36)
[2023-10-27] MEDS: Atorvastatin Calcium 40 MG Tablet PO (08:37)
[2023-10-27] MEDS: MENTHOL 226.8 GM JAR 1 APPLIC TOPICAL (08:40)
[2023-10-27] MEDS: Acetaminophen 325 MG Tablet 650 MG PO (08:42)
--- NOTE | 2023-10-27 10:22 | CASEMGMT ---
SOPHY BUI Assessment Face to Face with patient for initial transition planning/care coordination assessment. SOPHY BUI introduced self and role at [facility], pt voices understanding. Pt is A&Ox4 and is resting comfortably in bed and is calm. Care providers, pharmacy, and demographics verified. Admitting dx: Bradycardia PCP: Onur Mercedes Specialists: Denies Preferred Pharmacy:[facility] Insurance: [employer] Prescription Benefit: Yes LNOK: Dane Srinivasan (H) Living Arrangements: Pt lives with her in a two story home with two steps to enter ADLs/IADLs: Ind Transportation: Self, . Denies concerns DME: CBGM and a glucometer with supplies. Cane, FWW, and w/c but does not use. Pt is currently 93% on RA. If the pt were to qualify for home oxygen, prefers [employer] (a verbal list of local in-network DME companies were provided). HHC/SNF: States HHC Hx a long time ago after Knee Surgery but does not recall the name of the agency. Denies SNF Hx Pt?s goal: Home Plan: Home with pt and no needs. 6-Click is 23. Pt denies the need for HHC or OP Tx. Pt states that the feels safe discharging home today with no additional needs and denies further questions or concerns. Dulce Ramos RN, CM
--- NOTE | 2023-10-27 11:09 | DS.PCM_ITS ---
Providers Date of Admission: 10/26/23 Primary Care Physician: Dr. Onur Mercedes MD Reason For Visit: JUNCTIONAL BRADYCARDIA, NEAR SYNCOPE Diagnosis Discharge Diagnosis (1) Near syncope: Status: Acute Code(s): R55 - Syncope and collapse Plan Near syncope * Not orthostatic. May have been due to bradycardia Bradycardia * improved * patient was taking metoprolol succinate 100/d. Will resume, but at a lower dose of 12.5/d * Echo shows an EF 70% HTN accelerated * improved * already on losartan 100. * add amlodipine 5 Atrial fibrillation * Patient now states that she has had afib previously. Unclear if new. Patient said she has had a h/o ablation years ago in [place], but denies prior h/o afib. Had never been on OAC. Has not followed up with cardiology in years, but has plans to see Dr. Ortega * [id number] of 4. I recommended anticoagulation to help mitigate risk of CVA. She was agreeable. Start apixaban. * Resume metoprolol succinate, but at a lower dose, 12.5 (down from 100 given the bradycardia) Abnormal UA * UCx showed mixed organisms. DC abx. DM2 * Hypoglycemia this AM. * On scheduled log 20 TID, will hold * on SSI * a1c 6.8 Elevated TSH: * FT4: WNL. no additional work up Chronic conditions: * GERD: PPI * Anxiety/depression: Effexor * Elevated TSH DVT: not indicated as pt will be anticoagulated. Disposition: to home. Medications at Discharge Home Medications atorvastatin 40 mg tablet 40 mg PO DAILY 10/25/23 flash glucose scanning reader (FreeStyle Justin 2 [place]) 10/25/23 flash glucose sensor (FreeStyle Justin 2 Sensor kit) 10/25/23 hydroxyzine HCl 25 mg tablet 25 mg PO BID 10/25/23 losartan 100 mg tablet 100 mg PO DAILY 10/25/23 pantoprazole 40 mg tablet,delayed release 40 mg PO DAILY 10/25/23 trazodone 50 mg tablet 50 mg PO QHS 10/25/23 venlafaxine 150 mg capsule,extended release 24 hr 75 mg PO DAILY 10/25/23 venlafaxine 75 mg capsule,extended release 24 hr 75 mg PO DAILY 10/25/23 zolpidem 10 mg tablet 10 mg PO QHS PRN PRN insomnia 10/25/23 levothyroxine 200 mcg tablet (Synthroid) 200 mcg PO DAILY 10/26/23 amlodipine 5 mg tablet 5 mg PO DAILY #30 tabs 10/27/23 apixaban 5 mg tablet (Eliquis) 5 mg PO BID #60 tabs 10/27/23 insulin lispro 100 unit/mL subcutaneous pen 1 sliding scale dose subcut TID #15 mL 10/27/23 metoprolol succinate 25 mg tablet,extended release 24 hr 12.5 mg (1/2 x 25 mg) PO DAILY #30 tabs 10/27/23 Hospital Course Operations None Procedures 2-D Echocardiogram Summary of Care Provided Minutes Spent on Discharge: 36 Hospital Course: This is a 73-year-old female presents with near syncope. Patient was noted to be bradycardic. Patient's heart rate is in the 30s. Patient was taking 100 mg of metoprolol succinate a day and that was held. Heart rate has since improved into the 80s. Her heart rate has been noted to actually be in atrial fibrillation. Patient initially denied history of atrial fibrillation though did have an ablation in the past but did realize that she previously did have atrial fibrillation. Unclear how long she has been in atrial fibrillation this time as she has not been established with cardiology. Her ablation was approximately 15 years ago. Patient does have a high [id number] score and anticoagulation was recommended and patient has been since started on apixaban. Since her heart rate has increased into the 80s, she will be resumed back on metoprolol succinate but instead of 100, she will be on 12.5 mg daily. She did have an abnormal urinalysis but was multiple organisms and of low CFU so infection was ruled out. Blood pressure has been very labile and she has had accelerated blood pressures in the 200s to the 190s. Patient takes losartan already and she is been started on amlodipine to help with blood pressure management. Patient advised to follow-up with cardiology given her atrial fibrillation. Weight / BMI Weight Weight: 100.6 kg Body Mass Index (BMI) 40.5 ABG / Lab / Microbiology Data 10/26/23 05:55 10/26/23 05:45 Laboratory: Laboratory Results - last 24 hr 10/26/23 05:55: Hemoglobin A1c 6.8 H 10/26/23 10:58: POC Glucose 242 H 10/26/23 16:24: POC Glucose 389 H 10/26/23 21:32: POC Glucose 204 H 10/27/23 06:40: POC Glucose 79 Microbiology: Microbiology 10/25/23 13:39 Urine, Clean Catch Urine Culture - Final Mixed Gram Pos & Gram Neg Org D/C Instructions Discharge Diet: Low fat / Low cholesterol Meaningful Use Info Meaningful Use Meaningful Use Diagnoses (Choose all that apply): None applicable Ischemic Stroke Statin Dosing Therapy Reference: STATIN DOSE THERAPY REFERENCE: * Patients > 75 years receive moderate or high dose statin therapy. * Patients 75 years or YOUNGER should receive HIGH intensity statin dose unless contraindicated. You will be required to document reason for non-treatment if statin daily dose does not meet guidelines. HIGH DOSE STATIN THERAPY DAILY Atorvastatin > than or = to 40 mg Rosuvastatin > than or = to 20 mg Amlodipine + Atorvastatin > than or = to 2.5/40 mg Ezetimibe + Simvastatin 10/80 mg Simvastatin 80mg Discharge Plan Admission Admit Date/Time: 10/26/23 15:27 Primary Reason for Your Visit: Bradycardia Attending Provider: Frank Vazquez Primary Care Provider: Onur Merceeds Consulting Providers: Teodoro Mckeon Instructions Additional Instructions / Restrictions: You had a very low heart rates coming in here because you to almost pass out. This is likely due to the high dose of metoprolol succinate (also known as Toprol-XL). Heart rate is improved since we have stopped that. Will have you resume but at a much lower dose of 12.5 mg daily. Additionally your blood pressure is been very high so we will continue with her losartan but I have also added amlodipine (also known as Norvasc). Because of your atrial fibrillation you are at risk for stroke so he will be started on anticoagulation with apixaban. I do recommend that you follow-up with cardiology for further monitoring and recommendations. Discharge Orders/Prescriptions Prescriptions: New amlodipine 5 mg Tablet 5 mg PO DAILY Qty: 30 0RF Eliquis 5 mg Tablet 5 mg PO BID Qty: 60 0RF metoprolol succinate 25 mg tablet extended release 24 hr 12.5 mg PO DAILY Qty: 30 0RF Continued atorvastatin 40 mg tablet 40 mg PO DAILY trazodone 50 mg tablet 50 mg PO QHS venlafaxine 150 mg capsule,extended release 24hr 75 mg PO DAILY pantoprazole 40 mg tablet,delayed release (DR/EC) 40 mg PO DAILY hydroxyzine HCl 25 mg tablet 25 mg PO BID losartan 100 mg tablet 100 mg PO DAILY zolpidem 10 mg tablet 10 mg PO QHS PRN PRN (Reason: insomnia) venlafaxine 75 mg capsule,extended release 24hr 75 mg PO DAILY (DME) FreeStyle Justin 2 Sensor Kit MISCELLANEOUS Patient Comments: [NO ORIGINAL SIG] (DME) FreeStyle Justin 2 [place] Misc MISCELLANEOUS Patient Comments: [NO ORIGINAL SIG] levothyroxine [Synthroid] 200 mcg tablet 200 mcg PO DAILY Changed insulin lispro 100 unit/mL insulin pen 1 sliding scale dose subcut TID Qty: 15 0RF Rx Instructions: 150-189 mg/dl = 1 unit 190-229 mg/dl = 2 units 230-269 mg/dl = 3 units 270-309 mg/dl = 4 units 310-349 mg/dl = 5 units 350-399 mg/dl = 6 units 400-449 mg/dl = 7 units Discontinued metoprolol succinate 100 mg tablet extended release 24 hr 100 mg PO DAILY Referrals / Follow Up: [facility] [Provider Group] - Within 1 Month Onur Mercedes MD [Primary Care Provider] - Within 2 Weeks Disposition Disposition (needs filled in before D/C Order can be placed): Home, Self Care Charges/Coding Visit Charges Inpatient E&M: 71597 Disch Hosp >30min
--- NOTE | 2023-10-27 11:40 | PHA.DC_ITS ---
Pharmacy [facility] has performed discharge medication reconciliation and counseling for this patient. The patient's discharge medication list was reviewed for discrepancies and discrepancies were resolved. The patient was counseled on the following discharge medications and changes in medications for homegoing were reviewed. 1. ELIQUIS 2. NORVASC 3. TOPROL XL --> DOSE CHANGE The Reason for Use, instructions for use, and potential side effects were reviewed for all new medications. The patient's questions regarding all of their medications were answered. The patient was able to verbally demonstrate an understanding of their discharge medications. Medications at Discharge Home Medications atorvastatin 40 mg tablet 40 mg PO DAILY cholesterol 10/25/23 flash glucose scanning reader ([employer]Style Justin 2 [place]) 10/25/23 flash glucose sensor (FreeStyle Justin 2 Sensor kit) 10/25/23 hydroxyzine HCl 25 mg tablet 25 mg PO BID itching/ anxiety 10/25/23 losartan 100 mg tablet 100 mg PO DAILY blood pressure 10/25/23 pantoprazole 40 mg tablet,delayed release 40 mg PO DAILY acid reflux 10/25/23 trazodone 50 mg tablet 50 mg PO QHS sleep 10/25/23 venlafaxine 150 mg capsule,extended release 24 hr 75 mg PO DAILY 10/25/23 venlafaxine 75 mg capsule,extended release 24 hr 75 mg PO DAILY mood 10/25/23 zolpidem 10 mg tablet 10 mg PO QHS PRN PRN insomnia 10/25/23 levothyroxine 200 mcg tablet (Synthroid) 200 mcg PO DAILY thyroid 10/26/23 amlodipine 5 mg tablet 5 mg PO DAILY #30 tabs 10/27/23 apixaban 5 mg tablet (Eliquis) 5 mg PO BID #60 tabs 10/27/23 insulin lispro 100 unit/mL subcutaneous pen 1 sliding scale dose subcut TID #15 mL 10/27/23 metoprolol succinate 25 mg tablet,extended release 24 hr 12.5 mg (1/2 x 25 mg) PO DAILY #30 tabs 10/27/23
[2023-10-27 11:59] LABS: Bedside Glucose 273 mg/dL (74-106)
--- NOTE | 2023-10-27 12:02 | CASEMGMT ---
Patient has order for discharge. Patient has order for SOPHY Klein CM called [facility], copay is $42. RN HAO in to updated patient regarding Eliquis cost and provided patient with savings card. Patient denied further needs or concerns at discharge.
--- NOTE | 2023-10-27 16:11 | CHAPLAIN ---
Type of Pastoral Visit _x__ Initial Visit ___ Follow-up Visit ___ On-call Visit ___ General Patient Visit ___ Spiritual Assessment ___ Family Conference ___ Bereavement ___ Rapid Response ___ Code Blue ___ Other (describe below) Pastoral Care Referral From _x__ Patient ___ Family ___ Nurse ___ Physician ___ Acoustic Warfare Analyst ___ Printing Pressman ___ Other (describe below) Sacrament/Intervention _x__ Active listening ___ Anointing ___ Zoroastrian _x__ Bereavement ___ Communion _x__ Jackelyn exploration ___ _x__ Life review _x__ Prayer ___ Reconciliation ___ Sacrament of Sick _x__ Supportive presence ___ Wedding ___ Other (describe below) Pastoral Comments patient is willing to have spiritual care support and talks easily about her own recent health issues, her husbands health issues, and the recent of her son-in-law from cancer; pt expresses concern and sadness for her daughter and grandchildren; pt has a good roman catholic support but admits that she has not been in roman catholic for several years due to Covid and health concerns; pt asks for prayers for her family and expresses thanks for the support given today
== END 2023-10-27 12:35 | disposition home or self-care (01) | DRG 309 ==
LOC: ED 13:06 → PCU 13:24
PROVIDERS: Admitting Provider Family Medicine; Emergency Provider Emergency Medicine; PCP Family Medicine
DX: I48.91 Unspecified atrial fibrillation (principal); Z68.41 Body mass index [BMI] 40.0-44.9, adult; E11.9 Type 2 diabetes mellitus without complications; I10 Essential (primary) hypertension; F32.A Depression, unspecified; E66.01 Morbid (severe) obesity due to excess calories; E78.5 Hyperlipidemia, unspecified; K21.9 Gastro-esophageal reflux disease without esophagitis; Z79.4 Long term (current) use of insulin; F41.9 Anxiety disorder, unspecified; I16.0 Hypertensive urgency; Z79.899 Other long term (current) drug therapy
CPT/HCPCS: 36415; 71045; 80048; 81001; 82962; 83036; 83735; 84439; 84443; 85025; 85610; 85730; 87086; 87088; 93005; 93306; 99285; J7030; Q9957; A4216

== ENCOUNTER 2024-01-03 09:20 | Day surgery (SDC) | payer MEDICARE, SELFPAY ==
[2023-12-26 13:41] LABS: Mucous, Urine 0 SEEN /hpf (<or=2+)
[2023-12-26 14:14] LABS: Hemoglobin 13.1 g/dL (12.0-15.0); Mean Corp Hgb Conc 32.8 g/dL (32-36); Mean Corpuscular Hgb 27.8 pg (27.0-32.0); Mean Corpuscular Volume 84.9 fL (81-99); Mean Platelet Vol. 10.9 fl (6.2-12.0); Platelet Count 277 K/mm3 (150-450); RBC Distribution Width CV 14.7 % (11.6-14.6); RBC Distribution Width SD 45.1 fl (35.1-43.9); Red Blood Count 4.71 M/mm3 (4.2-5.4); White Blood Count 12.5 K/mm3 (4.4-11.0)
[2023-12-26 14:40] LABS: Anion Gap 5 (5-15); BUN 27 mg/dL (7-18); BUN/Creat Ratio 19.1 RATIO (10-20); Calcium,Total 9.2 mg/dL (8.5-10.1); Chloride 103 mmol/L (98-107); Creatinine, Serum 1.41 mg/dL (0.55-1.02); EST Glomerular Filtration Rate 39 mL/min (>60); Est Glom Filt Rate - Afr Amer 47 mL/min (>60); Glucose 204 mg/dL (74-106); Potassium 4.5 mmol/L (3.5-5.1); Sodium Level 137 mmol/L (136-145)
[2023-12-26 15:47] LABS: Color, Urine Yellow (Yellow); Glucose, Dipstick 50 mg/dl (Normal); Ketone-Dipstick 5 mg/dl (Negative); Leukocyte Esterase-Dipstick 500 /ul (Negative); Nitrite-Dipstick Positive (Negative); Occult Blood-Urine 25 /ul (Negative); Protein-Dipstick 100 mg/dl (Negative); Specific Gravity, Urine 1.025 (1.002-1.030); Urine Bilirubin Dipstick 1 mg/dL (Negative); Urine Clarity Cloudy (Clear); Urine Urobilinogen 1 mg/dl (Normal)
[2023-12-26 15:48] LABS: Bacteria 2+ /hpf (None Seen); Renal Epithelial Cells 0-5 SEEN /hpf (0-5); Squamous Epithelial Cells - UA 5-10 SEEN /hpf (5-10); Transitional Epithelial - Ur 0-5 SEEN /hpf (0-5)
[2023-12-26 15:49] LABS: Red Blood Cells-Urine 0-5 SEEN /hpf (0-5); White Blood Cells 10-25 SEEN /hpf (0-5)
[2024-01-02 08:20] VITALS: BMI 51.0
== END 2024-01-03 23:59 | disposition home or self-care (01) ==
LOC: CLSP 09:22
PROVIDERS: PCP Family Medicine; Referring Provider Internal Medicine Cardiovascular Disease; Visit Provider Internal Medicine Cardiovascular Disease
DX: Z53.8 Procedure and treatment not carried out for other reasons (principal); I48.91 Unspecified atrial fibrillation; Z79.4 Long term (current) use of insulin; E10.40 Type 1 diabetes mellitus with diabetic neuropathy, unspecified; E03.9 Hypothyroidism, unspecified; F32.A Depression, unspecified; Z79.899 Other long term (current) drug therapy; Z79.01 Long term (current) use of anticoagulants
CPT/HCPCS: 33274; 36415; 80048; 81001; 85027; J7040; Q9967; C1769

== ENCOUNTER → 2024-07-26 | Outpatient (CLI) | payer MEDICARE, SELFPAY | END | disposition home or self-care (01) | PROVIDERS: Referring Provider Nurse Practitioner Gerontology; Visit Provider Nurse Practitioner Gerontology | DX: I48.91 Unspecified atrial fibrillation (principal) | CPT/HCPCS: 93225; 93226 ==

== ENCOUNTER 2025-01-12 07:01 | Inpatient (IN) | payer MEDICARE, SELFPAY ==
[2025-01-12] VITALS (8 sets, daily range): BP systolic 104–246; BP diastolic 63–188; PULSE 77–91; RESP 16–22; TEMP -7.7–37.4; O2SAT 88–100; BMI 39.7
--- NOTE | 2025-01-12 07:12 | ED.VIS.GI ---
HPI HPI - GI History of Present Illness Chief Complaint: Abd Pain Informant: patient and family Abdominal Pain/Flank Pain Onset: Today and Hours Context: Gradual Onset Timing: Continuous Quality: Sharp Location: Epigastric Current Severity: Moderate Maximum Severity: Moderate Worsened by: Nothing Relieved by: Nothing Nausea/Vomiting/Emesis GI Symptom: Positive for Nausea and Vomiting Onset: Today Severity: Mild Diarrhea/Melena/Hematochezia GI Symptom: Negative for Diarrhea, Melena or Hematochezia Associated Symptoms Associated Symptoms: Negative for Dysuria, Hematuria or Urgency Narrative Narrative: 74-year-old female history of A-fib with a pacemaker. History of diabetes. Prior complete hysterectomy. Patient states that last night around midnight about 7 hours ago started having epigastric abdominal pain. Has been constant. Nothing particular makes it better or worse. She has had associated nausea and vomiting. No fever. No diarrhea or constipation. No dysuria. No hematemesis or melena. No recent weight change. She does remember ever having pain like this before. Nothing particular makes the pain better or worse. Prior similar symptoms: No Recent Illness/Hospitalization: No PFSH PFS Medical History (Updated 01/12/25 @ 08:[address] Stephen Lafleur MD) Anxiety Diabetes Kidney stones Non-smoker Persistent atrial fibrillation Urinary incontinence Restless leg syndrome Mild nonproliferative diabetic retinopathy of both eyes Hypothyroid Hypercholesterolemia Hepatic steatosis GERD (gastroesophageal reflux disease) Essential tremor Diabetic neuropathy Depression Class 2 severe obesity due to excess calories with serious comorbidity and body mass index (BMI) of 38.0 to 38.9 in adult Insomnia Paroxysmal atrial fibrillation Syncope and collapse Renal insufficiency FH: total knee replacement Hypertension Type 1 diabetes Home Medications ?Medication ?Instructions ?Recorded ?Last Taken ?Type atorvastatin 40 mg tablet 40 mg PO DAILY cholesterol 10/25/23 Unknown History flash glucose scanning reader 10/25/23 Unknown History (FreeStyle Justin [address]) flash glucose sensor (FreeStyle 10/25/23 Unknown History Justin 2 Sensor kit) losartan 100 mg tablet 100 mg PO DAILY blood pressure 10/25/23 Unknown History pantoprazole 40 mg tablet,delayed 40 mg PO DAILY acid reflux 10/25/23 Unknown History release trazodone 50 mg tablet 50 mg PO QHS sleep 10/25/23 Unknown History levothyroxine 200 mcg tablet 200 mcg PO DAILY thyroid 10/26/23 Unknown History (Synthroid) metoprolol succinate 25 mg 12.5 mg (2 x 25 mg) PO DAILY #30 10/27/23 Unknown Rx tablet,extended release 24 hr tabs cholecalciferol (vitamin D3) 125 125 mcg PO DAILY 11/10/23 Unknown History mcg (5,000 unit) capsule insulin aspart U-100 100 unit/mL 34 unit subcut .COMPLEX 11/10/23 Unknown History (3 mL) subcutaneous pen (Novolog FlexPen U-100 Insulin aspart) multivitamin 1 tab PO DAILY 11/10/23 Unknown History venlafaxine 150 mg 150 mg PO DAILY 11/10/23 Unknown History capsule,extended release 24 hr vitamin B complex 1 tab PO DAILY 11/10/23 Unknown History apixaban 5 mg tablet (Eliquis) 5 mg PO BID #180 tabs 06/18/24 Unknown Rx semaglutide 0.5 mg/0.1 mL 44 mg subcut BID 10/30/24 Unknown History subcutaneous syringe zolpidem 10 mg tablet 5 mg PO QHS insomnia 10/30/24 Unknown History Allergy/AdvReac Type Severity Reaction Status Date / Time No Known Allergies Allergy Verified 01/12/25 07:07 Family History Other Diabetes Surgical History Presence of cardiac pacemaker (08/03/24) H/O: hysterectomy Hx of tonsillectomy Social History Smoking Status: Never smoker ROS ROS ED ROS Narrative Epigastric abdominal pain. Nausea vomiting. Otherwise no recent illness. Constitutional Constitutional ED: Denies fever(s) ENT ENT ED: Denies ear pain Cardiovascular Cardiovascular: Denies chest pain Respiratory/Chest Respiratory/Chest: Denies cough or dyspnea Gastrointestinal Gastrointestinal: Reports abdominal pain, nausea and vomiting; Denies constipation, diarrhea or melena Genitourinary Genitourinary ED: Denies dysuria or hematuria Musculoskeletal Musculoskeletal: Denies arthralgias Integumentary Denies abscess Neurologic Neurologic: Denies headache(s) Psychiatric Psychiatric: Denies anxiety Endocrine Endocrinology: Denies polydipsia Hematologic/Lymphatic Hematologic/Lymphatic: Denies easy bleeding, easy bruising or lymphadenopathy Allergic/Immunologic Allergic/Immunologic ED: Denies mouth swelling, tongue swelling or urticaria EXAM Physical Exam Narrative Exam Narrative: 74-year-old female vital signs are stable. Afebrile. Elevated blood pressure. No distress. HEENT exam pupils round react light. Moist mutes membranes. Lungs clear to auscultation bilaterally. Heart rate 77 no murmur. Chest wall ribs nontender. Abdomen soft nondistended normal bowel sounds. No peritoneal signs. She does have epigastric and mild right upper quadrant tenderness. No Kirkland sign. Right lower quadrants are unremarkable. No pulsatile mass. No obstruction. Moving all 4 extremities. Nontender no edema. Normal strength. She is awake and alert. Answering questions and following commands. Const Vital Signs: 01/12/25 07:03 01/12/25 08:52 Temperature 98.1 F Temperature Source Oral Pulse Rate 77 Respiratory Rate 22 H Blood Pressure 246/97 H 198/188 H Blood Pressure Mean 146 191 Pulse Ox 98 Oxygen Delivery Method Room Air MDM MDM MDM Narrative Medical decision making narrative: 74-year-old female upper abdominal pain began last night's been going on now over 7 hours. Should be given IV morphine for pain and Zofran. Screening labs and a CAT scan of the obtained. Differential would include gastritis, pancreatitis, gallbladder disease versus other etiologies. Repeat exam patient is doing well around 8:50 AM. Pains much better after the morphine. Blood pressure be repeated. IV Zosyn is been written for. CAT scan labs are consistent with acute cholecystitis. I spoke to general surgeon on-call Dr. Rcihy Cano. Either he or the hospitalist will admit the patient. And he will plan on eventually taking her gallbladder out. Patient will be admitted by the general surgeon with a consult to the hospitalist to help manage her blood pressure. History & Record Review Discussion w/independent historian: Patient Additional record(s) reviewed:: Prior inpatient record, Prior outpatient record, Prior ED visit and Prior labs Lab Data Attestation: I reviewed the patient's lab results. Lab results narrative: CBC shows a white count 22.1. H&H of 14 and 42. Platelets 238. 90% neutrophils. Chemistries show a sodium 135. Gap 15. BUN and creatinine 26 and 1. Glucose 233. Liver enzymes show an alk phos of 106. Lipase is normal at 19. UA is normal. No white or red cells. No nitrites nor bacteria. Labs: Laboratory Results - last 24 hr 01/12/25 01/12/25 07:14 07:50 WBC 22.1 H RBC 5.04 Hgb 14.3 Hct 42.3 MCV 83.9 MCH 28.4 MCHC 33.8 RDW Std Deviation 40.2 RDW Coeff of Betina 13.2 Plt Count 238 MPV 10.1 Immature Gran % (Auto) 0.400 Neut % (Auto) 90.6 H Lymph % (Auto) 5.2 L [place] % (Auto) 3.2 Eos % (Auto) 0.1 Baso % (Auto) 0.5 Absolute Neuts (auto) 20.0 H Absolute Lymphs (auto) 1.16 Nucleated RBC % 0 Sodium 135 Potassium 4.4 Chloride 94 L Carbon Dioxide 26.0 Anion Gap 15 BUN 26 H Creatinine 1.02 Estim Creat Clear Calc 52.29 Est GFR (MDRD) Non-Af 57 L BUN/Creatinine Ratio 25.3 H Glucose 233 H Calcium 10.0 Total Bilirubin 0.53 AST 31 ALT 16 Alkaline Phosphatase 106 H Total Protein 8.5 H Albumin 4.4 Globulin 4.1 Albumin/Globulin Ratio 1.1 Lipase 19 Urine Color Yellow Urine Clarity Clear Urine pH 7.0 Ur Specific [place] 1.010 Urine Protein 100 H Urine Glucose (UA) 1000 H Urine Ketones Negative Urine Occult Blood 25 H Urine Nitrite Negative Urine Bilirubin Negative Urine Urobilinogen Normal Ur Leukocyte Esterase Negative Urine RBC 0-5 SEEN Urine WBC 0-5 SEEN Ur Squamous Epith Cells 0-5 SEEN Urine Bacteria 0 SEEN Urine Mucus 0 SEEN Radiography Diagnostic Testing: Clinical Impression(s) from Imaging Studies Abdomen/Pelvis CT 01/12/25 08:05 IMPRESSION: 1. Gallbladder wall thickening and sludge is seen. No high-density calculus identified. Correlate with physical exam. Consider cholecystitis. Ultrasound may be helpful if clinically desired. 2. Small sliding hiatus hernia. 3. Lower lumbar degenerative disc disease with grade 1 anterolisthesis L4 on L5. No pars defects. Reading Location: [id number] Discharge Plan Dx/Rx/DC Orders Clinical Impression: Abdominal pain, Acute cholecystitis, Leukocytosis, History of atrial fibrillation, History of diabetes mellitus, Hypertension Disposition Disposition: Acute Care Hospital [facility]
[2025-01-12 07:26] LABS: Hematocrit 42.3 % (37-47); Hemoglobin 14.3 g/dL (12.0-15.0); Immature Granulocytes Count 0.080 X10^3/uL (0.0-0.0); Mean Corp Hgb Conc 33.8 g/dL (32-36); Mean Corpuscular Volume 83.9 fL (81-99); Mean Platelet Vol. 10.1 fl (6.2-12.0); NRBC Flagged by Analyzer 0 % (0-5); POSITIVE DIFFERENTIAL YES; Platelet Count 238 K/mm3 (150-450); RBC Distribution Width CV 13.2 % (11.6-14.6); RBC Distribution Width SD 40.2 fl (35.1-43.9); Red Blood Count 5.04 M/mm3 (4.2-5.4); White Blood Count 22.1 K/mm3 (4.4-11.0)
[2025-01-12 07:35] LABS: Differential Indicated SCAN CRITERIA MET
[2025-01-12 07:52] LABS: Lipase 19 U/L (13-75)
[2025-01-12 07:54] LABS: AST(SGOT) 31 U/L (<=31); Alanine Aminotransfer ALT/SGPT 16 U/L (<=34); Albumin, Serum 4.4 g/dL (3.4-4.8); Alkaline Phosphatase 106 U/L (35-104); Anion Gap 15 (5-15); BUN 26 mg/dL (4-19); BUN/Creat Ratio 25.3 RATIO (10-20); Calcium,Total 10.0 mg/dL (7.6-11.0); Carbon Dioxide 26.0 mmol/L (21.0-32.0); Chloride 94 mmol/L (98-108); Estimated Creatinine Clearance 52.29 ml/min (50-250); Globulin 4.1 g/dL (2.2-4.2); Glucose 233 mg/dL (70-99); Potassium 4.4 mmol/L (3.3-5.1)
[2025-01-12 07:58] LABS: Mucous, Urine 0 SEEN /hpf (<or=2+)
--- NOTE | 2025-01-12 08:05 | CT_ITS ---
PROCEDURE: CT/Abdomen/Pelvis W IV Cont ONLY
[2025-01-12 08:09] LABS: Color, Urine Yellow (Yellow); Glucose, Dipstick 1000 mg/dl (Normal); Ketone-Dipstick Negative (Negative); Leukocyte Esterase-Dipstick Negative /ul (Negative); Nitrite-Dipstick Negative (Negative); Occult Blood-Urine 25 /ul (Negative); Protein-Dipstick 100 mg/dl (Negative); Specific Gravity, Urine 1.010 (1.002-1.030); Urine Bilirubin Dipstick Negative (Negative)
[2025-01-12 08:16] LABS: Red Blood Cells-Urine 0-5 SEEN /hpf (0-5); Squamous Epithelial Cells - UA 0-5 SEEN /hpf (5-10)
[2025-01-12] MEDS: Piperacil/Tazobactam 4.5 GM in 0.9% Normal Saline (100mL MB+) 100 ML IV (09:00)
[2025-01-12] MEDS: 0.9% Normal Saline (1000mL) 1,000 ML 100 ML IV ×2 (10:52→20:57)
[2025-01-12] MEDS: 0.9% Saline Lock 10 ML Syringe IV (10:53)
--- NOTE | 2025-01-12 11:59 | EKG12_ITS ---
Test Reason : PREOP
--- NOTE | 2025-01-12 12:38 | PCM.PN.HOSP ---
Subjective Subjective 74-year-old female came to the hospital further problem abdominal pain as well as nausea and vomiting secondary to cholecystitis as discovered in the emergency room on a CT scan. She does have a leukocytosis to 22,000, she states that she has never had pain like this before. She has had some itching with food but nothing to this severity. Objective Data Objective Data Vital Signs: Vital Signs Temp Pulse Resp BP Pulse Ox O2 Del Method O2 Flow Rate 98.2 F 86 16 166/77 H 100 Nasal Cannula 3 01/12/25 11:00 01/12/25 11:00 01/12/25 11:00 01/12/25 11:00 01/12/25 11:00 01/12/25 11:00 01/12/25 11:00 Oxygen Flow Rate (L/min) 3 Oxygen Delivery Method Nasal Cannula Weight: 217 lb 6.012 oz Body Mass Index (BMI) 39.7 Intake & Output: Intake and Output for Last 24 Hours 01/11/25 01/12/25 01/13/25 03:59 03:59 02:59 Intake Total 250 / 250 Balance 250 / 250 Lab / Micro Data 01/12/25 07:14 01/12/25 07:14 Labs: Laboratory Results - last 24 hr 01/12/25 07:14: WBC 22.1 H, RBC 5.04, Hgb 14.3, Hct 42.3, MCV 83.9, MCH 28.4, MCHC 33.8, RDW Std Deviation 40.2, RDW Coeff of Betina 13.2, Plt Count 238, MPV 10.1, Immature Gran % (Auto) 0.400, Neut % (Auto) 90.6 H, Lymph % (Auto) 5.2 L, [place] % (Auto) 3.2, Eos % (Auto) 0.1, Baso % (Auto) 0.5, Absolute Neuts (auto) 20.0 H, Absolute Lymphs (auto) 1.16, Nucleated RBC % 0, Sodium 135, Potassium 4.4, Chloride 94 L, Carbon Dioxide 26.0, Anion Gap 15, BUN 26 H, Creatinine 1.02, Estim Creat Clear Calc 52.29, Est GFR (MDRD) Non-Af 57 L, BUN/Creatinine Ratio 25.3 H, Glucose 233 H, Calcium 10.0, Total Bilirubin 0.53, AST 31, ALT 16, Alkaline Phosphatase 106 H, Total Protein 8.5 H, Albumin 4.4, Globulin 4.1, Albumin/Globulin Ratio 1.1, Lipase 19 01/12/25 07:23: Hemoglobin A1c 9.3 H 01/12/25 07:50: Urine Color Yellow, Urine Clarity Clear, Urine pH 7.0, Ur Specific [place] 1.010, Urine Protein 100 H, Urine Glucose (UA) 1000 H, Urine Ketones Negative, Urine Occult Blood 25 H, Urine Nitrite Negative, Urine Bilirubin Negative, Urine Urobilinogen Normal, Ur Leukocyte Esterase Negative, Urine RBC 0-5 SEEN, Urine WBC 0-5 SEEN, Ur Squamous Epith Cells 0-5 SEEN, Urine Bacteria 0 SEEN, Urine Mucus 0 SEEN Radiography Diagnostic Testing: Radiology Impression Abdomen/Pelvis CT 01/12/25 08:05 IMPRESSION: 1. Gallbladder wall thickening and sludge is seen. No high-density calculus identified. Correlate with physical exam. Consider cholecystitis. Ultrasound may be helpful if clinically desired. 2. Small sliding hiatus hernia. 3. Lower lumbar degenerative disc disease with grade 1 anterolisthesis L4 on L5. No pars defects. Reading Location: [facility] Physical Exam Narrative General: Alert, Oriented x3, Cooperative, No apparent distress HEENT: Atraumatic, PERRLA, EOMI, Normocephalic Oral: Moist Mucosa Neck: Supple, No JVD Lungs: Diminished, Normal air movement, No rhonchi, No wheeze, No rales Cardiovascular: Regular rate, Regular Rhythm, Normal S1, Normal S2, No murmurs Abdomen: Soft, tenderness to palpation of the right upper quadrant, Non-Distended, No Hepato-splenomegaly Extremities: No edema, Capillary Refill Less than 3 Seconds Skin: No rashes, No breakdown Musculoskeletal: No Tenderness to Palpation of Joints or Extremities Neurological: No focal neurological deficits, Motor Exam 5/5 strength throughout, Sensory exam intact to light touch and pain Psych/Mental Status: Normal Affect, Appropriate Assessment & Plan Assessment/Plan (1) Acute cholecystitis: PLAN: Plan 1. Acute cholecystitis ? Plan for operative intervention tomorrow morning ? Pain management per primary ? Continue with Zosyn ? Continue with clear liquid diet with n.p.o. after midnight 2. Essential HTN/HLD/history of A-fib ? Had a pacemaker placed as well as an A-fib ablation she was still to come off of her Eliquis she has not been on it for a month ? Will hold her losartan pending surgery but continue with her metoprolol ? She was very hypertensive in the emergency room this was likely related to stress and pain she is doing much better now after pain medication ? Continue with her Lipitor and can likely restart her losartan tomorrow after surgery 3. GERD ? Stable ? Continue with her home medications 4. Hypothyroidism ? Stable ? Continue with her Synthroid 5. Anxiety/depression ? Stable ? Continue with her home medications DVT: SCDs Charges/Coding Visit Charges Inpatient E&M: 97525 Subs Hosp L3
[2025-01-12] MEDS: Piperacil/Tazobactam 3.375 GM in 0.9% Normal Saline (50mL MB+) 50 ML IV ×2 (14:08→21:56)
[2025-01-13] VITALS (21 sets, daily range): BP systolic 107–186; BP diastolic 41–117; PULSE 72–99; RESP 15–32; TEMP 36.5–37.2; O2SAT 88–99; BMI 39.7
[2025-01-13] MEDS: 0.9% Saline Lock 10 ML Syringe IV (04:03)
[2025-01-13] MEDS: Piperacil/Tazobactam 3.375 GM in 0.9% Normal Saline (50mL MB+) 50 ML IV ×3 (04:59→22:35)
[2025-01-13] MEDS: 0.9% Normal Saline (1000mL) 1,000 ML 100 ML IV ×2 (05:40→17:39)
[2025-01-13 05:52] LABS: Differential Indicated SCAN CRITERIA MET; Hematocrit 37.0 % (37-47); Hemoglobin 12.0 g/dL (12.0-15.0); Immature Granulocytes Count 0.180 X10^3/uL (0.0-0.0); Mean Corp Hgb Conc 32.4 g/dL (32-36); Mean Corpuscular Volume 85.3 fL (81-99); Mean Platelet Vol. 10.1 fl (6.2-12.0); NRBC Flagged by Analyzer 0 % (0-5); POSITIVE DIFFERENTIAL YES; Platelet Count 189 K/mm3 (150-450); RBC Distribution Width CV 14.1 % (11.6-14.6); RBC Distribution Width SD 43.7 fl (35.1-43.9); Red Blood Count 4.34 M/mm3 (4.2-5.4); White Blood Count 23.0 K/mm3 (4.4-11.0)
[2025-01-13 06:16] LABS: Differential Comment SCANNED
[2025-01-13 06:18] LABS: AST(SGOT) 20 U/L (<=31); Alanine Aminotransfer ALT/SGPT 18 U/L (<=34); Albumin, Serum 3.6 g/dL (3.4-4.8); Alkaline Phosphatase 81 U/L (35-104); Anion Gap 9 (5-15); BUN 26 mg/dL (4-19); BUN/Creat Ratio 22.2 RATIO (10-20); Calcium,Total 8.6 mg/dL (7.6-11.0); Carbon Dioxide 26.3 mmol/L (21.0-32.0); Chloride 98 mmol/L (98-108); Estimated Creatinine Clearance 45.98 ml/min (50-250); Globulin 3.4 g/dL (2.2-4.2); Glucose 265 mg/dL (70-99); Potassium 4.3 mmol/L (3.3-5.1)
--- NOTE | 2025-01-13 07:00 | RAD_ITS ---
PROCEDURE: RAD/Cholangiogram/ O R,Initial
--- NOTE | 2025-01-13 07:34 | PCM.HP.STD ---
HPI - General General Date of Admission: 01/12/25 HPI Narrative CHIQUI OSULLIVAN, is a 74 F who presents with abdominal pain. Patient says that the pain started about 12 hours before presentation. She denies fevers but she is having chills. She did have nausea and vomiting. She says the pain wraps around and radiates to the back. [facility] Medical History (Updated 01/12/25 @ 11:20 by Sasha Tobar) Current use of insulin High cholesterol Anxiety Diabetes Kidney stones Non-smoker Persistent atrial fibrillation Urinary incontinence Restless leg syndrome Mild nonproliferative diabetic retinopathy of both eyes Hypothyroid Hypercholesterolemia Hepatic steatosis GERD (gastroesophageal reflux disease) Essential tremor Diabetic neuropathy Depression Class 2 severe obesity due to excess calories with serious comorbidity and body mass index (BMI) of 38.0 to 38.9 in adult Insomnia Paroxysmal atrial fibrillation Syncope and collapse Renal insufficiency FH: total knee replacement Hypertension Type 1 diabetes Home Medications ?Medication ?Instructions ?Recorded ?Last Taken ?Type atorvastatin 40 mg tablet 40 mg PO DAILY cholesterol 10/25/23 Unknown History flash glucose scanning reader 10/25/23 Unknown History (FreeStyle Justin 2 [place]) flash glucose sensor (FreeStyle 10/25/23 Unknown History Justin 2 Sensor kit) losartan 100 mg tablet 100 mg PO DAILY blood pressure 10/25/23 Unknown History pantoprazole 40 mg tablet,delayed 40 mg PO DAILY acid reflux 10/25/23 Unknown History release trazodone 50 mg tablet 50 mg PO QHS sleep 10/25/23 Unknown History levothyroxine 200 mcg tablet 200 mcg PO DAILY thyroid 10/26/23 Unknown History (Synthroid) metoprolol succinate 25 mg 12.5 mg (1/2 x 25 mg) PO DAILY #30 10/27/23 Unknown Rx tablet,extended release 24 hr tabs cholecalciferol (vitamin D3) 125 125 mcg PO DAILY 11/10/23 Unknown History mcg (5,000 unit) capsule insulin aspart U-100 100 unit/mL 30 unit subcut md ordered 11/10/23 Unknown History (3 mL) subcutaneous pen (Novolog FlexPen U-100 Insulin aspart) multivitamin 1 tab PO DAILY 11/10/23 Unknown History venlafaxine 150 mg 150 mg PO DAILY 11/10/23 Unknown History capsule,extended release 24 hr vitamin B complex 1 tab PO DAILY 11/10/23 Unknown History semaglutide 0.5 mg/0.1 mL 44 mg subcut BID 10/30/24 Unknown History subcutaneous syringe zolpidem 10 mg tablet 5 mg PO QHS insomnia 10/30/24 Unknown History data transfer uziel wilks BT md ordered 01/12/25 Unknown History Allergy/AdvReac Type Severity Reaction Status Date / Time No Known Allergies Allergy Verified 01/12/25 07:07 Family History Other Diabetes Surgical History Presence of cardiac pacemaker (08/03/24) H/O: hysterectomy Hx of tonsillectomy Social History Smoking Status: Never smoker ROS Constitutional Constitutional: Reports chills; Denies anorexia, fatigue, fever(s) or headache(s) Eyes Eyes: Denies blurry vision ENT HEENT: Denies abnormal hearing Cardiovascular Cardiovascular: Denies chest pain Respiratory/Chest Respiratory/Chest: Denies cough or dyspnea Gastrointestinal Gastrointestinal: Reports abdominal pain, nausea and vomiting Musculoskeletal Musculoskeletal: Denies abnormal gait Integumentary Integumentary: Denies jaundice Neurologic Neurologic: Denies abnormal gait Vital Signs Vital Signs Vital Signs: 01/12/25 08:52 01/12/25 09:12 01/12/25 09:12 Temperature 99.0 F 18 F L Temperature Source Oral Pulse Rate 81 78 Pulse Strength Respiratory Rate 18 18 Respiratory Effort Respiratory Depth Respiratory Pattern Blood Pressure 198/188 H 190/92 H 190/98 H Blood Pressure Mean 191 124 128 Blood Pressure Source Blood Pressure Position Blood Pressure Location Pulse Ox 95 95 Oxygen Delivery Method Nasal Cannula Oxygen Flow Rate (L/min) 2 01/12/25 10:45 01/12/25 11:00 01/12/25 12:47 Temperature 98.2 F Temperature Source Temporal Pulse Rate 86 Pulse Strength Respiratory Rate 16 Respiratory Effort Normal Non-Labored Respiratory Depth Normal Respiratory Pattern Normal Blood Pressure 166/77 H 138/63 H Blood Pressure Mean 106 88 Blood Pressure Source Monitor Blood Pressure Position Supine Blood Pressure Location Right Arm Pulse Ox 100 95 Oxygen Delivery Method Nasal Cannula Nasal Cannula Nasal Cannula Oxygen Flow Rate (L/min) 3 3 3 01/12/25 16:28 01/12/25 21:57 01/12/25 22:00 Temperature 99.3 F H 98.9 F Temperature Source Temporal Oral Pulse Rate 91 89 Pulse Strength Respiratory Rate 16 16 Respiratory Effort Respiratory Depth Respiratory Pattern Blood Pressure 148/83 H 104/65 Blood Pressure Mean 104 78 Blood Pressure Source Monitor Monitor Blood Pressure Position Supine Semi-Fowlers Blood Pressure Location Left Arm Right Arm Pulse Ox 94 88 94 Oxygen Delivery Method Room Air Room Air Nasal Cannula Oxygen Flow Rate (L/min) 2 01/12/25 22:00 01/12/25 22:04 01/13/25 03:05 Temperature 98.9 F Temperature Source Oral Pulse Rate 88 Pulse Strength Normal (2+) Respiratory Rate 16 Respiratory Effort Normal Non-Labored Respiratory Depth Normal Respiratory Pattern Normal Blood Pressure 167/67 H Blood Pressure Mean 100 Blood Pressure Source Monitor Blood Pressure Position Semi-Fowlers Blood Pressure Location Left Arm Pulse Ox 94 Oxygen Delivery Method Nasal Cannula Oxygen Flow Rate (L/min) 2 01/13/25 04:03 Temperature Temperature Source Pulse Rate 88 Pulse Strength Respiratory Rate Respiratory Effort Respiratory Depth Respiratory Pattern Blood Pressure Blood Pressure Mean Blood Pressure Source Blood Pressure Position Blood Pressure Location Pulse Ox Oxygen Delivery Method Oxygen Flow Rate (L/min) Weight Weight: 217 lb 6.012 oz Body Mass Index (BMI) 39.7 Physical Exam Const oriented x3 and no apparent distress Resp normal respiratory effort GI soft to palpation Palpation: tender Positive for RUQ Results Lab / Micro Data 01/13/25 05:32 01/13/25 05:32 Labs: Laboratory Results - last 24 hr 01/12/25 07:23: Hemoglobin A1c 9.3 H, TSH 4.140 01/12/25 16:05: POC Glucose 333 H 01/12/25 21:57: POC Glucose 259 H 01/13/25 05:32: WBC 23.0 H, RBC 4.34, Hgb 12.0, Hct 37.0, MCV 85.3, MCH 27.6, MCHC 32.4, RDW Std Deviation 43.7, RDW Coeff of Betina 14.1, Plt Count 189, MPV 10.1, Immature Gran % (Auto) 0.800, Neut % (Auto) 84.9 H, Lymph % (Auto) 5.7 L, [place] % (Auto) 8.2, Eos % (Auto) 0.1, Baso % (Auto) 0.3, Absolute Neuts (auto) 19.5 H, Absolute Lymphs (auto) 1.30, Nucleated RBC % 0, Differential Comment SCANNED, Sodium 134, Potassium 4.3, Chloride 98, Carbon Dioxide 26.3, Anion Gap 9, BUN 26 H, Creatinine 1.16, Estim Creat Clear Calc 45.98 L, Est GFR (MDRD) Non-Af 49 L, BUN/Creatinine Ratio 22.2 H, Glucose 265 H, Calcium 8.6, Total Bilirubin 0.71, AST 20, ALT 18, Alkaline Phosphatase 81, Total Protein 6.9, Albumin 3.6, Globulin 3.4, Albumin/Globulin Ratio 1.1 01/13/25 05:41: POC Glucose 239 H Assessment & Plan Assessment/Plan (1) Acute cholecystitis: PLAN: The patient has epigastric pain and on physical exam she does have a positive Kirk[place] sign. Her CT scan revealed a thick walled gallbladder with inflammation. The patient's story corroborates acute cholecystitis. White count is elevated. The patient was admitted yesterday and kept n.p.o. overnight and started on antibiotics yesterday. I recommended laparoscopic cholecystectomy with cholangiograms. I discussed the procedure in detail with the patient. I discussed the risks, benefits, and alternatives of the procedure. I discussed the risks including but not limited to bleeding, infection, injury to surrounding organs such as the liver, bile duct, bowels. I did discuss the possibility of having to convert to an open procedure as well as the possibility that if any injuries occurred this may necessitate further surgery at a tertiary care center. Richy Riddle MD Pager: [facility] [address] [place] [address] [address] [place] [address] Office:
--- NOTE | 2025-01-13 08:03 | PCM.PRE.AN2 ---
ASA Classification* ASA Classification ASA Classification: 3 Assessment & Plan Anesthesia* Anesthesia Assessment Anesthesia Assessment: Discussed sedation and/or anesthesia options, risks, benefits, and alternatives with patient/parents/legal guardian/POA. Questions invited. The patient/parents/legal guardian/POA seems to understand and agrees to proceed with anesthesia plan. Reviewed the physical assessment, medical history, allergy history and patient home medications list prior to surgery/procedure/anesthetic and documented any changes. Performed airway and anesthesia risk assessments. Anesthesia Type Anesthesia Type: General Anesthesia Focused Assessment* Temperature: 98.9 F Pulse Rate: 88 Blood Pressure: 167/67 Respiratory Rate: 16 Pulse Ox: 94 Oxygen Flow Rate (L/min): 2 Airway Assessment Mouth opens: >3 cm Mallampati Score: II Labs Anesthesia Preop lab: CBC WBC, (4.4-11.0) 23.0 K/mm3 H Today, 05:32 RBC, (4.2-5.4) 4.34 M/mm3 Today, 05:32 Hgb, (12.0-15.0) 12.0 g/dL Today, 05:32 Hct, (37-47) 37.0 % Today, 05:32 Plt Count, (150-450) 189 K/mm3 Today, 05:32 CHEMISTRY Potassium, (3.3-5.1) 4.3 mmol/L Today, 05:32 Sodium, (133-145) 134 mmol/L Today, 05:32 Magnesium, (1.6-2.6) 1.7 mg/dL 10/25/23, 11:28 BUN, (4-19) 26 mg/dL H Today, 05:32 Creatinine, (0.70-1.20) 1.16 mg/dL Today, 05:32 Glucose, (70-99) 265 mg/dL H Today, 05:32 POC Glucose, (74-106) 239 mg/dL H Today, 05:41 TSH, (0.300-4.200) 4.140 uIU/mL 01/12/25, 07:23 COAG PT, (11.7-14.9) 14.6 SECONDS 10/25/23, 11:28 Pre-Assessment Diagnosis/Proposed Procedure Planned Operative Procedure(s): Laproscopic jillian Anesthesia History 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 When Was Last Pacemaker Check September? pt unsure 01/12/25 11:12 QUESTION #4 FULL TEXT: You/Your Family Experience fever (hyperthermia) with Anesthesia Last Oral Intake Last Oral intake: Last Oral Intake NPO since 00:00 01/13/25 05:02 Meds taken in AM with sips of No 01/13/25 05:02 water? Meds patient instructed to take am of surgery PONV PONV - parts sales representative: PONV - parts sales representative Female HX of Motion Sickness HX of N/V After Surgery Non-Smoker Duration of Surgery greater than 60 minutes Number of Risk Factors PONV Score Height & Weight Height & Weight: Anesthesia: Height & Weight Height 5 ft 2 in 01/13/25 05:02 Weight: 98.6 kg 01/13/25 05:02 Body Mass Index (BMI) 39.7 01/13/25 05:02 Respiratory Assessment Respiratory Assessment - parts sales representative: Respiratory Tract Infection Hx - parts sales representative Hx Respiratory Tract Infection No 01/12/25 11:12 STOP Sleep Apnea STOP Sleep Apnea - parts sales representative: STOP Sleep Apnea - parts sales representative Hx Hypertension Yes 01/12/25 10:45 Hx Sleep Apnea No 01/12/25 10:45 CPAP BIPAP Do you snore loudly (louder No 01/12/25 10:45 than talking or can be heard Do you often feel tired/ No 01/12/25 10:45 fatigued/ sleepy during daytime? Has anyone observed you stop No 01/12/25 10:45 breathing during sleep? STOP Results Negative 01/12/25 10:45 QUESTION #5 FULL TEXT : Do you snore loudly (louder than talking or can be heard through closed doors)? Tobacco Use History Tobacco Use History - parts sales representative: Tobacco Use History - parts sales representative Tobacco Use Smoking Status Never smoker 01/12/25 10:45 Hx Tobacco Use No 01/12/25 10:45 Years Smoking Packs Smoked per Day Smoking Cessation Date was within the last 15 years Hx Smoking Cessation Date Hx Smoking Cessation Counseling Hematologic Medial History Hematologic Hx - parts sales representative: Hematologic Medical Hx - special needs librarian Hx of Blood Transfusion No 01/12/25 10:45 Hx of Transfusion in last 3 No 01/12/25 10:45 Months Date of Last Transfusion (if within last 3 months) Ever experience any problems No 01/12/25 10:45 with transfusion(s)? Specify any problems Hx of Preganancy in last 3 No 01/12/25 10:45 Months Nurse Filling Out Transfusion [facility] 01/12/25 10:45 & Questions: Date: 01/12/25 01/12/25 10:45 Time: 11:06 01/12/25 10:45 Patient unable to answer at this time (ie. confused, unrespo /Reproduction History /Reproductive History - parts sales representative: /Reproductive Hx- parts sales representative Hx Now Gestational Age (in weeks): EDC: Hx Hx Para Hx Section SAB Active Medications Active Medications: Current Medications Generic Name Dose Route Start Last Admin Trade Name Freq PRN Reason Stop Dose Admin Acetaminophen 650 mg 01/12/25 09:08 01/13/25 04:08 Acetaminophen 325 Mg Tablet PO 650 mg Q4H PRN PRN Administration Pain 1-10 or Fever Atorvastatin Calcium 40 mg 01/13/25 10:00 Atorvastatin Calcium 40 Mg Tablet PO DAILY CRUZITO Glucagon 1 mg 01/12/25 13:00 Glucagon 1 Mg/Ml Syringe IM X1 PRN Hypoglycemia Protocol Hydralazine HCl 10 mg 01/13/25 03:52 01/13/25 04:03 Hydralazine 20 Mg/Ml Vial IV 10 mg Q4H PRN PRN Administration SBP > 160 Protocol Sodium Chloride 1,000 mls @ 100 mls/hr 01/12/25 09:10 01/13/25 05:40 IV 100 mls/hr .Q10H CRUZITO Administration Piperacillin Sod/Tazobactam 50 mls @ 12.5 mls/hr 01/12/25 14:00 01/13/25 04:59 Sod 3.375 gm/ Sodium Chloride IV 12.5 mls/hr Q8 CRUZITO Administration Sodium Chloride 250 mls @ 15 mls/hr 01/12/25 11:25 IV .[id number] PRN Saline Flush Sodium Chloride 250 mls @ 15 mls/hr 01/12/25 11:25 IV .[id number] PRN Additional IVPB Infusion Dextrose 250 mls @ 0 mls/hr 01/12/25 13:00 Dextrose 10%-Water IV .Q0M PRN HYPOGLYCEMIA Protocol As Directed Influenza Virus Vaccine 180 mcg 01/13/25 10:00 Flu Vaccine High Dose 25-26(65yr Up) 180 Mcg/0.5 Ml Syringe IM 01/13/25 10:01 .ONCE ONE Insulin Human Lispro 0 unit 01/12/25 16:00 01/13/25 05:42 Insulin Lispro 100 Unit/Ml Insuln.Pen SC 4 units ACHS [facility] Administration Protocol Levothyroxine Sodium 200 mcg 01/13/25 06:00 01/13/25 04:59 Levothyroxine 100 Mcg Tablet PO Not Given DAILY@0600 [facility] Metoprolol Succinate 12.5 mg 01/13/25 10:00 Metoprolol(Xl)Succ 25 Mg Tablet PO DAILY [facility] Protocol Morphine Sulfate 2 - 4 mg 01/12/25 09:08 01/12/25 20:57 Morphine 2 Mg/Ml Syringe IV 2 mg Q2H PRN PRN Administration Pain Score 4-10 Morphine Sulfate 2 - 4 mg 01/12/25 09:53 Morphine 4 Mg/Ml Syringe IV Q2H PRN PRN Pain Score 4-10 Ondansetron HCl 4 mg 01/12/25 09:08 Ondansetron 4 Mg/2 Ml Vial IV Q6H PRN PRN NAUSEA/VOMITING Pantoprazole Sodium 40 mg 01/13/25 10:00 Pantoprazole Sodium 40 Mg Tablet PO DAILY [facility] Sodium Chloride 10 - 40 ml 01/12/25 09:08 01/13/25 04:03 0.9% Saline Lock 10 Ml Syringe IV 10 ml UD PRN Administration SALINE FLUSH Sodium Chloride 10 - 40 ml 01/12/25 09:08 0.9% Saline Lock 10 Ml Syringe IV UD PRN SALINE FLUSH Sodium Chloride 10 - 40 ml 01/12/25 11:25 0.9% Saline Lock 10 Ml Syringe IV UD PRN SALINE FLUSH Trazodone HCl 50 mg 01/12/25 22:00 01/12/25 21:56 Trazodone 50 Mg Tablet PO 50 mg QHS [facility] Administration Venlafaxine HCl 150 mg 01/13/25 10:00 Venlafaxine Xr 150 Mg Capsule PO DAILY [facility] Zolpidem Tartrate 5 mg 01/12/25 22:00 01/12/25 22:07 Zolpidem Tartrate 5 Mg Tablet PO 5 mg QHS [facility] Administration PFSH Medical History Current use of insulin High cholesterol Anxiety Diabetes Kidney stones Non-smoker Persistent atrial fibrillation Urinary incontinence Restless leg syndrome Mild nonproliferative diabetic retinopathy of both eyes Hypothyroid Hypercholesterolemia Hepatic steatosis GERD (gastroesophageal reflux disease) Essential tremor Diabetic neuropathy Depression Class 2 severe obesity due to excess calories with serious comorbidity and body mass index (BMI) of 38.0 to 38.9 in adult Insomnia Paroxysmal atrial fibrillation Syncope and collapse Renal insufficiency FH: total knee replacement Hypertension Type 1 diabetes Home Medications ?Medication ?Instructions ?Recorded ?Last Taken ?Type atorvastatin 40 mg tablet 40 mg PO DAILY cholesterol 10/25/23 Unknown History flash glucose scanning reader 10/25/23 Unknown History (FreeStyle Justin 2 [place]) flash glucose sensor (FreeStyle 10/25/23 Unknown History Justin 2 Sensor kit) losartan 100 mg tablet 100 mg PO DAILY blood pressure 10/25/23 Unknown History pantoprazole 40 mg tablet,delayed 40 mg PO DAILY acid reflux 10/25/23 Unknown History release trazodone 50 mg tablet 50 mg PO QHS sleep 10/25/23 Unknown History levothyroxine 200 mcg tablet 200 mcg PO DAILY thyroid 10/26/23 Unknown History (Synthroid) metoprolol succinate 25 mg 12.5 mg (1/2 x 25 mg) PO DAILY #30 10/27/23 Unknown Rx tablet,extended release 24 hr tabs cholecalciferol (vitamin D3) 125 125 mcg PO DAILY 11/10/23 Unknown History mcg (5,000 unit) capsule insulin aspart U-100 100 unit/mL 30 unit subcut ordered 11/10/23 Unknown History (3 mL) subcutaneous pen (Novolog FlexPen U-100 Insulin aspart) multivitamin 1 tab PO DAILY 11/10/23 Unknown History venlafaxine 150 mg 150 mg PO DAILY 11/10/23 Unknown History capsule,extended release 24 hr vitamin B complex 1 tab PO DAILY 11/10/23 Unknown History semaglutide 0.5 mg/0.1 mL 44 mg subcut BID 10/30/24 Unknown History subcutaneous syringe zolpidem 10 mg tablet 5 mg PO QHS insomnia 10/30/24 Unknown History data transfer uziel wilks BT md ordered 01/12/25 Unknown History Allergy/AdvReac Type Severity Reaction Status Date / Time No Known Allergies Allergy Verified 01/12/25 07:07 Family History Other Diabetes Surgical History Presence of cardiac pacemaker (08/03/24) H/O: hysterectomy Hx of tonsillectomy Social History Smoking Status: Never smoker Review of Systems (Anesthesia) ROS Narrative System reviewed and no additional complaints, except as documented.
[2025-01-13] MEDS: NORMAL SALINE IV (08:16)
[2025-01-13] MEDS: Midazolam 2 MG/2 ML Syringe IV (08:20)
[2025-01-13] MEDS: fentaNYL 100 MCG/2 ML Ampul IV (08:20)
--- NOTE | 2025-01-13 08:20 | GALL_PTH ---
PATIENT: CHIQUI OSULLIVAN LOC: MS3 U#:[id number] AGE/SX: 74/F ROOM: TX323 RE01/12/[address]: Dr. Richy Riddle MD : 1950 BED: 1 DIS: 01/15/2025 SPEC #: [id number] RECD: 01/14/25 07:16 STATUS: BRADLEY PATTON #: [id number] CHRISTIANO: 01/13/25 08:[address]: Richy Riddle DEPT: SURGICAL PATHOLOGY RECD BY: Clark Gifford ENTERED: 01/14/25 09:15 SP TYPE: FACUNDO ALEX DR: MD Armand Worley, DIE PRESSER-C Tissues: A - Gallbladder, NOS Procedures: Surgery Specimen Level III HEADER OPERATION: Laparoscopic cholecystectomy with intraoperative cholangiogram PRE-OP DIAGNOSIS: Acute cholecystitis TISSUE SUBMITTED: A- Gallbladder MICROSCOPIC DIAGNOSIS A. Gallbladder, laparoscopic cholecystectomy: - Acute gangrenous cholecystitis with abscess. - Benign pericystic lymph node. MICROSCOPIC DESCRIPTION Slides are reviewed. GROSS DESCRIPTION A. Received in formalin labeled with the patient's name and date of . Designated as gallbladder is a 8.1 x 4.1 x 2.0 cm [id number] to harper gallbladder with patchy serosal exudate and an attached patent cystic duct (inked black, shaved). A possible lymph node is present. Opening reveals minimal, blood-tinged, somewhat tenacious material within the lumen, devoid of choleliths. The mucosa is dark red-brown and granular with diffuse, patchy necrosis. Sectioning reveals a focally congested wall measuring up to 1.0 cm thick with an apparent abscess cavity near the fundus. Cholesterolosis is not present. Public Address System Operator sections are submitted in 2 cassettes as follows: A1: Margin, possible lymph node, cross-sectionsA2: Cross-sections with apparent abscess cavity [place] 01/14/2025 CPT:68103
[2025-01-13] MEDS: Lidocaine 1% (5 ml sdv) 5 ML Vial 3 ML IV (08:34)
[2025-01-13] MEDS: Bupiv/Epi 0.25% 30 ML Vial (09:00)
--- NOTE | 2025-01-13 09:26 | OP.PCM_ITS ---
Operative Report (Standard)
--- NOTE | 2025-01-13 09:26 | PCM.OPRPT ---
Operative Report (Standard) Operative Information Date of Procedure: 01/13/25 Pre-Operative Diagnosis: Acute cholecystitis Post-Operative Diagnosis: Acute cholecystitis Surgery/Procedure Performed: Laparoscopic cholecystectomy with cholangiograms manager etl: Yes Medical Record Coder: Aneta Rowell Tasks completed by hotel assistant general manager: Opening & closing and Retracting Type of Anesthesia: General/Regional RN Documented Start/Stop Times: Operation Date: 01/13/25 08:20 Case Time Anesthesia Start 01/13/25 08:13 Into Room 01/13/25 08:13 Procedure Start 01/13/25 08:35 Procedure Start Time: 08:35 Procedure Stop Time: 09:30 Select all DRAINS/GRAFTS/IMPLANTS that apply: None Estimated Blood Loss: 20 Specimen collected: Yes Description of specimen(s) removed: Gallbladder Description of surgery: After obtaining informed consent patient was brought back to the operating room. General anesthesia was induced. The abdomen was prepped and draped in usual sterile fashion. A small midline incision was made superior to the umbilicus and deepened to the level of fascia. The fascia was elevated and incised. Next the peritoneum was elevated and incised in the same fashion. Finger sweep was performed and the Jj trocar was placed into the abdomen. The balloon was inflated. The abdomen was inflated to 15 mmHg. Next a camera was introduced into the abdomen and the abdomen was inspected. Next under direct visualization three 5-mm ports were placed one subxiphoid and 2 subcostal. Next the gallbladder was elevated and retracted toward the right shoulder. The peritoneum was stripped from the gallbladder. The infundibulum was located and retracted laterally. Next the triangle of Calot was dissected and the cystic duct and cystic artery were identified. Cholangiograms were performed. The Leonardo clamp was used to clamp across the infundibulum and the catheter needle was inserted into the gallbladder. The cystic duct did not fill as it was occluded. All of the contrast was filling the gallbladder. The clamp was removed as well as the needle and the infundibulum was grasped once more. Three hemolock clips were placed across the cystic duct. The cystic duct was then divided leaving 2 clips on the stump. The cystic artery was clipped and divided in the same fashion. The hook cautery was then used to take the gallbladder off of the gallbladder bed. Hemostasis was obtained. Gallbladder fossa was irrigated and no active bleeding or bile leakage was noted. Next the camera was introduced in the subxiphoid port. An Endopouch bag was placed through the umbilical port and the gallbladder was placed into it. The gallbladder was then removed through the umbilical incision. The camera was then reinserted through the umbilical port. Surgicel powder was. Throughout the gallbladder fossa. Electrocautery was used to maintain hemostasis. The gallbladder fossa was inspected once more and noted to be hemostatic with no leaking bile. The abdomen was suctioned dry. The 5 mm ports were removed under direct visualization. The umbilical port was then removed and the air was removed from the abdomen. Next using an 0 Vicryl suture the umbilical fascia was closed in a [id number] fashion. The umbilical port site was irrigated local anesthetic was administered to all the incisions. All the incisions were closed with interrupted subcuticular 4-0 Monocryl sutures followed by Steri-Strips and dressings. The patient was awoken and taken to PACU in stable condition. Surgical Findings: Very inflamed gallbladder, wound class III Complications Complications: No Admit VTE Documentation VTE Mechan Device Prophylaxis: SCD's
--- NOTE | 2025-01-13 09:39 | PCM.PN.HOSP ---
Subjective Subjective Heading down for surgery today Objective Data Objective Data Vital Signs: Vital Signs Temp Pulse Resp BP Pulse Ox O2 Del Method O2 Flow Rate 98.9 F 88 16 167/67 H 94 Nasal Cannula 2 01/13/25 08:03 01/13/25 08:03 01/13/25 08:03 01/13/25 08:03 01/13/25 08:03 01/13/25 07:55 01/13/25 08:03 Oxygen Flow Rate (L/min) 2 Oxygen Delivery Method Nasal Cannula Weight: 217 lb 6.012 oz Body Mass Index (BMI) 39.7 Intake & Output: Intake and Output for Last 24 Hours 01/12/25 01/13/25 01/14/25 03:59 02:59 03:59 Intake Total 1950 1021.67 / 1021.67 Balance 1950 1021.67 / 1021.67 Lab / Micro Data 01/13/25 05:32 01/13/25 05:32 Labs: Laboratory Results - last 24 hr 01/12/25 07:23: Hemoglobin A1c 9.3 H, TSH 4.140 01/12/25 16:05: POC Glucose 333 H 01/12/25 21:57: POC Glucose 259 H 01/13/25 05:32: WBC 23.0 H, RBC 4.34, Hgb 12.0, Hct 37.0, MCV 85.3, MCH 27.6, MCHC 32.4, RDW Std Deviation 43.7, RDW Coeff of Betina 14.1, Plt Count 189, MPV 10.1, Immature Gran % (Auto) 0.800, Neut % (Auto) 84.9 H, Lymph % (Auto) 5.7 L, [place]phill % (Auto) 8.2, Eos % (Auto) 0.1, Baso % (Auto) 0.3, Absolute Neuts (auto) 19.5 H, Absolute Lymphs (auto) 1.30, Nucleated RBC % 0, Differential Comment SCANNED, Sodium 134, Potassium 4.3, Chloride 98, Carbon Dioxide 26.3, Anion Gap 9, BUN 26 H, Creatinine 1.16, Estim Creat Clear Calc 45.98 L, Est GFR (MDRD) Non-Af 49 L, BUN/Creatinine Ratio 22.2 H, Glucose 265 H, Calcium 8.6, Total Bilirubin 0.71, AST 20, ALT 18, Alkaline Phosphatase 81, Total Protein 6.9, Albumin 3.6, Globulin 3.4, Albumin/Globulin Ratio 1.1 01/13/25 05:41: POC Glucose 239 H Physical Exam Narrative General: Alert, Oriented x3, Cooperative, No apparent distress HEENT: Atraumatic, PERRLA, EOMI, Normocephalic Oral: Moist Mucosa Neck: Supple, No JVD Lungs: Diminished, Normal air movement, No rhonchi, No wheeze, No rales Cardiovascular: Regular rate, Regular Rhythm, Normal S1, Normal S2, No murmurs Abdomen: Soft, tenderness to palpation of the right upper quadrant, Non-Distended, No Hepato-splenomegaly Extremities: No edema, Capillary Refill Less than 3 Seconds Skin: No rashes, No breakdown Musculoskeletal: No Tenderness to Palpation of Joints or Extremities Neurological: No focal neurological deficits, moves all extremities Psych/Mental Status: Normal Affect, Appropriate Assessment & Plan Assessment/Plan (1) Acute cholecystitis: PLAN: Plan 1. Acute cholecystitis ? Plan for cholecystectomy this morning ? Pain management per primary ? Continue with Zosyn ? N.p.o. 2. Essential HTN/HLD/history of A-fib ? Had a pacemaker placed as well as an A-fib ablation she was still to come off of her Eliquis she has not been on it for a month ? Will hold her losartan pending surgery but continue with her metoprolol ? She was very hypertensive in the emergency room this was likely related to stress and pain she is doing much better now after pain medication ? Continue with her Lipitor and can likely restart her losartan tomorrow after surgery 3. DM2 ? Continue sliding scale insulin ? Accu-Cheks ? Will monitor and make adjustments as necessary 4. GERD ? Stable ? Continue with her home medications 5. Hypothyroidism ? Stable ? Continue with her Synthroid 6. Anxiety/depression ? Stable ? Continue with her home medications DVT: SCDs Charges/Coding Visit Charges Inpatient E&M: 51173 Subs Hosp L2
[2025-01-13] MEDS: Metoprolol(XL)Succ 25 MG Tablet 12.5 MG PO (12:08)
[2025-01-13] MEDS: FLU VACCINE HIGH DOSE 25-26(65YR UP) 180 MCG/0.5 ML SYRINGE IM (12:23)
--- NOTE | 2025-01-13 13:17 | POSTOP.ANE_ITS ---
Anesthesia: Postop Eval I
--- NOTE | 2025-01-13 13:17 | PCM.POST.ANE ---
Anesthesia: Postop Eval I Current Vital Signs Temperature: 98 F Pulse Rate: 78 Blood Pressure: 170/85 Respiratory Rate: 16 Pulse Ox: 96 Assessment Airway patent: Yes Spontaneous unlabored respirations: Yes Mental status: Awake nausea: No Vomiting: No Anesthesia Complication: No Fluid Hydration Crystalloid volume administer (ml): 700 Total IV fluid infused: 700 Progress Note Anesthesia document: Postop Eval 1 completed: Yes
--- NOTE | 2025-01-13 13:19 | POSTOPAN2_ITS ---
Anesthesia Postop Eval I Sum
--- NOTE | 2025-01-13 13:19 | PCM.POSTANE2 ---
Anesthesia Postop Eval I Sum Postop Eval Completion status Anesthesia document: Postop Eval 1 completed: Yes Anesthesia Postop Eval I Summary Anesthesia Postop Eval I Summary: Anesthesia Postop Eval I: Assessment Summary Airway patent Yes 01/13/25 13:18 Spontaneous unlabored Yes 01/13/25 13:18 respirations Mental status Awake 01/13/25 13:18 nausea No 01/13/25 13:18 Vomiting No 01/13/25 13:18 Anesthesia Postop Eval I: Fluid Summary Crystalloid volume administer 700 01/13/25 13:18 (ml) Colloids volume administered ( ml) Blood Product volume administered (ml) Total IV fluid infused 700 01/13/25 13:18 Anesthesia Postop Eval I: Summary Notes Anesthesia Complication No 01/13/25 13:18 Anesthesia Complication Comment: Post-operative progress note Anesthesia: Postop Eval II Evaluation Mental status: Awake Pain Level: 0 nausea: No Vomiting: No
[2025-01-14] VITALS (11 sets, daily range): BP systolic 133–147; BP diastolic 55–64; PULSE 73–86; RESP 16–18; TEMP 36.3–37.2; O2SAT 89–98
[2025-01-14] MEDS: 0.9% Normal Saline (1000mL) 1,000 ML 100 ML IV ×2 (03:28→15:00)
[2025-01-14] MEDS: Piperacil/Tazobactam 3.375 GM in 0.9% Normal Saline (50mL MB+) 50 ML IV ×3 (05:11→21:23)
[2025-01-14 06:08] LABS: Hematocrit 34.0 % (37-47); Hemoglobin 10.6 g/dL (12.0-15.0); Immature Granulocytes Count 0.160 X10^3/uL (0.0-0.0); Mean Corp Hgb Conc 31.2 g/dL (32-36); Mean Corpuscular Volume 89.5 fL (81-99); Mean Platelet Vol. 10.5 fl (6.2-12.0); NRBC Flagged by Analyzer 0 % (0-5); POSITIVE DIFFERENTIAL YES; Platelet Count 158 K/mm3 (150-450); RBC Distribution Width CV 14.2 % (11.6-14.6); RBC Distribution Width SD 46.7 fl (35.1-43.9); Red Blood Count 3.80 M/mm3 (4.2-5.4); White Blood Count 20.9 K/mm3 (4.4-11.0)
[2025-01-14 06:30] LABS: Differential Indicated SCAN CRITERIA MET
[2025-01-14 06:46] LABS: Anion Gap 8 (5-15); BUN 31 mg/dL (4-19); BUN/Creat Ratio 17.3 RATIO (10-20); Calcium,Total 7.9 mg/dL (7.6-11.0); Carbon Dioxide 25.2 mmol/L (21.0-32.0); Chloride 101 mmol/L (98-108); Estimated Creatinine Clearance 30.13 ml/min (50-250); Glucose 242 mg/dL (70-99); Potassium 4.6 mmol/L (3.3-5.1)
--- NOTE | 2025-01-14 07:17 | PCM.PN.SRG ---
Subjective Subjective Patient evaluated resting comfortably in bed. She denies any nausea, vomiting, fever. She notes feeling much improved this morning. She has tolerated her current diet. She notes incisional discomfort. Objective Data Objective Data Vital Signs: Vital Signs Temp Pulse Resp BP Pulse Ox O2 Del Method O2 Flow Rate 98.1 F 77 16 134/55 H 95 Nasal Cannula 2 01/14/25 06:09 01/14/25 06:09 01/14/25 06:09 01/14/25 06:09 01/14/25 06:09 01/14/25 06:09 01/14/25 06:09 Oxygen Flow Rate (L/min) 2 Oxygen Delivery Method Nasal Cannula Weight: 217 lb 6.012 oz Body Mass Index (BMI) 39.7 Intake & Output: Intake and Output for Last 24 Hours 01/12/25 01/13/25 01/14/25 23:59 22:59 23:59 Intake Total 1700 / 1900 2771.67 / 3271.67 1731.67 / 1731.67 Output Total 320 / 320 350 / 350 Balance 1700 / 1900 2451.67 / 2951.67 1381.67 / 1381.67 Lab / Micro Data 01/14/25 05:44 01/14/25 05:44 Labs: Laboratory Results - last 24 hr 01/13/25 10:12: POC Glucose 246 H 01/13/25 12:21: POC Glucose 295 H 01/13/25 17:18: POC Glucose 264 H 01/13/25 22:47: POC Glucose 218 H 01/14/25 05:44: WBC 20.9 H, RBC 3.80 L, Hgb 10.6 L, Hct 34.0 L, MCV 89.5, MCH 27.9, MCHC 31.2 L, RDW Std Deviation 46.7 H, RDW Coeff of Betina 14.2, Plt Count 158, MPV 10.5, Immature Gran % (Auto) 0.800, Neut % (Auto) 86.2 H, Lymph % (Auto) 4.8 L, [place] % (Auto) 7.7, Eos % (Auto) 0.3, Baso % (Auto) 0.2, Absolute Neuts (auto) 18.0 H, Absolute Lymphs (auto) 1.00, Nucleated RBC % 0, Sodium 134, Potassium 4.6, Chloride 101, Carbon Dioxide 25.2, Anion Gap 8, BUN 31 H, Creatinine 1.77 H, Estim Creat Clear Calc 30.13 L, Est GFR (MDRD) Non-Af 30 L, BUN/Creatinine Ratio 17.3, Glucose 242 H, Calcium 7.9 01/14/25 06:23: POC Glucose 240 H Radiography Diagnostic Testing: Radiology Impression Cholangiogram 01/13/25 07:00 IMPRESSION: Administrative dictation for fluoroscopy. Please see the operative report for details on the procedure. Reading Location: [facility] Physical Exam GI GI Narrative: Abdomen- soft. Slight tenderness at the incision sites. Incisions c/d/i. No erythema or infection noted. Assessment & Plan Assessment/Plan (1) Acute cholecystitis: PLAN: I am following this patient in conjunction with Dr. Riddle. He has independently evaluated this patient. Labs reviewed Encourage ambulation and I.S Wean off oxygen Ready for discharge later today Charges/Coding Visit Charges Inpatient E&M: 00214 Subs Hosp L1 (post-op)
--- NOTE | 2025-01-14 07:57 | DCINST_ITS ---
Discharge Instructions
--- NOTE | 2025-01-14 07:57 | PCM.DC ---
Discharge Instructions DC O2, CPAP, BIPAP needs Home O2 Discharge instructions: No Dressing / Incision Discharge Activity: May Not Drive (3-5 days) and May Shower (starting tomorrow) Lifting Restrictions: 15 pounds for 2 weeks Dressing / Incision Call your doctor if your incision/area has: Continuous Slow Oozing, Sudden Increased Bleeding, Increased Pain/ Swelling, Increased Redness, Foul Smelling Discharge and Swelling at the incision site Call your doctor if you observe: Fever of 101 or Higher Suture Line Care: Avoid Pulling/Pushing and Avoid Pinching/Bending Remove Dressing in: 2 days Cleanse incision/area with: Soap & Water Follow Up Care Please Follow Up With: Kelly John PA-C When: Please contact our office at [phone], option #2 to schedule a 2 week follow-up Test Results: Test results from this visit will be discussed in further detail at your follow-up appointment, if applicable. Discharge Plan Admission Admit Date/Time: 01/12/25 09:08 Primary Reason for Your Visit: Acute cholecystitis Attending Provider: Richy Riddle Primary Care Provider: Armand Ta Consulting Providers: Teodoro Mckeon Instructions Additional Instructions / Restrictions: Cholecystectomy Diet ? Start light with soups and soft bland foods. You may advance diet as tolerated. Activity ? You may drive in 3-5 days but not while taking narcotic pain medication. ? I encourage walking. You may go up steps, one at a time. ? Do not swim or use hot tubs for 2 weeks. ? For comfort, you may use warm compresses or ice as needed for 15-20 minutes at a time. Lifting ? You may lift up to 15 pounds for 2 weeks. Dressings/Incision ? You may shower OVER your plastic dressings ? Do NOT tub bathe for 1 week ? Leave plastic dressings on for 2 days. ? When plastic dressings are removed, you will find steri strips. It is okay to continue showering with them in place, pat them dry. ? You may remove steri-strips after 1 week. We recommend getting them soaking wet for easier removal. Medications ? Anesthesia used during surgery and pain medications may cause constipation. I recommend initiating on the day of surgery a fiber supplement like, Metamucil, Citrucel, FiberCon, Benefiber, or a generic form of these medications. 1 heaping tablespoon in water daily. You may continue to utilize any bowel regimen or oral laxatives that you routinely take. ? As long as you are not intolerant to Tylenol, acetaminophen, ibuprofen, Motrin, Advil, Aleve, or similar medications, I would recommend transitioning to these [id number] medicines as soon as possible instead of continued use of narcotic pain medication. Follow up ? You should call [facility] soon after surgery, at [phone] option 2 to make a follow up appointment for 10-14 days after your surgery. Discharge Orders/Prescriptions Prescriptions: New acetaminophen 325 mg Tablet 650 mg PO Q4H PRN PRN (Reason: Pain 1-10 Or Fever) Qty: 0 0RF oxycodone 5 mg Tablet 5 mg PO Q6H PRN PRN (Reason: Pain Score 4-10) 3 Days Qty: 10 0RF Continued cholecalciferol (vitamin D3) 125 mcg (5,000 unit) capsule 125 mcg PO DAILY insulin aspart U-100 [Novolog FlexPen U-100 Insulin] 100 unit/mL (3 mL) insulin pen 30 unit subcut Rx Instructions: before each meal multivitamin Tablet 1 tab PO DAILY vitamin B complex Tablet 1 tab PO DAILY semaglutide 0.5 mg/0.1 mL syringe 44 mg subcut BID Rx Instructions: 44 UNITS atorvastatin 40 mg tablet 40 mg PO DAILY trazodone 50 mg tablet 50 mg PO QHS pantoprazole 40 mg tablet,delayed release (DR/EC) 40 mg PO DAILY losartan 100 mg tablet 100 mg PO DAILY (DME) FreeStyle Justin 2 Sensor Kit MISCELLANEOUS Patient Comments: [NO ORIGINAL SIG] (DME) FreeStyle Justin 2 [place] Misc MISCELLANEOUS Patient Comments: [NO ORIGINAL SIG] levothyroxine [Synthroid] 200 mcg tablet 200 mcg PO DAILY metoprolol succinate 25 mg tablet extended release 24 hr 12.5 mg PO DAILY Qty: 30 0RF venlafaxine 150 mg capsule,extended release 24hr 150 mg PO DAILY zolpidem 10 mg tablet 5 mg PO QHS data transfer cap, degludec,BT Rx Instructions: 44 units morning and at bedtime. Referrals / Follow Up: Armand Ta, APPLICATION SUPPORT-C [Primary Care Provider, Family Practice] Kelly John, PA-C [[facility] Staff - [facility], Surgery] - Within 2 Weeks Disposition Disposition (needs filled in before D/C Order can be placed): Home, Self Care
--- NOTE | 2025-01-14 08:01 | PCM.DC.SUM ---
Providers Date of Admission: 01/12/25 Primary Care Physician: YASMIN Howe Consultations 01/12/25 09:08 Consult: Hospitalist Routine Consulting Provider: Teodoro Mckeon Reason for Consult: blood pressure management EMERGENT Consult: No MD Notified: Yes Date Notified: 01/12/25 Time Notified: 09:09 Method of Notification: Verbal Reason For Visit: ACUTE CHOLECYSTITIS Diagnosis Discharge Diagnosis (1) Acute cholecystitis: Status: Acute Code(s): K81.0 - Acute cholecystitis Plan: I am following this patient in conjunction with Dr. Riddle. He has independently evaluated this patient. Labs reviewed Encourage ambulation and I.S Wean off oxygen Ready for discharge later today Medications at Discharge Home Medications atorvastatin 40 mg tablet 40 mg PO DAILY cholesterol 10/25/23 flash glucose scanning reader (FastacashStyle Justin 2 [place]) 10/25/23 flash glucose sensor (FreeStyle Justin 2 Sensor kit) 10/25/23 losartan 100 mg tablet 100 mg PO DAILY blood pressure 10/25/23 pantoprazole 40 mg tablet,delayed release 40 mg PO DAILY acid reflux 10/25/23 trazodone 50 mg tablet 50 mg PO QHS sleep 10/25/23 levothyroxine 200 mcg tablet (Synthroid) 200 mcg PO DAILY thyroid 10/26/23 metoprolol succinate 25 mg tablet,extended release 24 hr 12.5 mg (1/2 x 25 mg) PO DAILY #30 tabs 10/27/23 cholecalciferol (vitamin D3) 125 mcg (5,000 unit) capsule 125 mcg PO DAILY 11/10/23 insulin aspart U-100 100 unit/mL (3 mL) subcutaneous pen (Novolog FlexPen U-100 Insulin aspart) 30 unit subcut md ordered 11/10/23 multivitamin 1 tab PO DAILY 11/10/23 venlafaxine 150 mg capsule,extended release 24 hr 150 mg PO DAILY 11/10/23 vitamin B complex 1 tab PO DAILY 11/10/23 semaglutide 0.5 mg/0.1 mL subcutaneous syringe 44 mg subcut BID 10/30/24 zolpidem 10 mg tablet 5 mg PO QHS insomnia 10/30/24 data transfer cap, degludec,BT ordered 01/12/25 acetaminophen 325 mg tablet 650 mg (2 x 325 mg) PO Q4H PRN PRN Pain 1-10 Or Fever #0 tabs 01/14/25 oxycodone 5 mg tablet 5 mg PO Q6H PRN PRN Pain Score 4-10 3 days #10 tabs 01/14/25 Hospital Course Operations cholecystecomy (Laparoscopic cholecystectomy with cholangiograms) Summary of Care Provided Hospital Course: Patient presented with abdominal pain. CT scan of ab/pel demonstrated gallbladder wall thickening. Dr. Riddle performed a laparoscopic cholecystectomy with intraoperative cholangiogram on 01/13/25. Patient tolerated the procedure well. She had an uneventful hospitalization. Upon discharge, patient tolerated a diet. She notes pain is well controlled. She denies nausea, vomiting, fever. She denies shortness of breath. Patient will need to contact our office for a follow-up visit for 2 weeks. Weight / BMI Weight Weight: 217 lb 6.012 oz Body Mass Index (BMI) 39.7 ABG / Lab / Microbiology Data 01/14/25 05:44 01/14/25 05:44 Laboratory: Laboratory Results - last 24 hr 01/13/25 10:12: POC Glucose 246 H 01/13/25 12:21: POC Glucose 295 H 01/13/25 17:18: POC Glucose 264 H 01/13/25 22:47: POC Glucose 218 H 01/14/25 05:44: WBC 20.9 H, RBC 3.80 L, Hgb 10.6 L, Hct 34.0 L, MCV 89.5, MCH 27.9, MCHC 31.2 L, RDW Std Deviation 46.7 H, RDW Coeff of Betina 14.2, Plt Count 158, MPV 10.5, Immature Gran % (Auto) 0.800, Neut % (Auto) 86.2 H, Lymph % (Auto) 4.8 L, [place] % (Auto) 7.7, Eos % (Auto) 0.3, Baso % (Auto) 0.2, Absolute Neuts (auto) 18.0 H, Absolute Lymphs (auto) 1.00, Nucleated RBC % 0, Differential Comment COMMENT, Sodium 134, Potassium 4.6, Chloride 101, Carbon Dioxide 25.2, Anion Gap 8, BUN 31 H, Creatinine 1.77 H, Estim Creat Clear Calc 30.13 L, Est GFR (MDRD) Non-Af 30 L, BUN/Creatinine Ratio 17.3, Glucose 242 H, Calcium 7.9 01/14/25 06:23: POC Glucose 240 H Radiography Diagnostic Testing: Radiology Impression Cholangiogram 01/13/25 07:00 IMPRESSION: Administrative dictation for fluoroscopy. Please see the operative report for details on the procedure. Reading Location: [facility] D/C Instructions Call your doctor if your incision/area has: Continuous Slow Oozing, Sudden Increased Bleeding, Increased Pain/ Swelling, Increased Redness, Foul Smelling Discharge and Swelling at the incision site Call your doctor if you observe: Fever of 101 or Higher Suture Line Care: Avoid Pulling/Pushing and Avoid Pinching/Bending Cleanse incision/area with: Soap & Water DC O2, CPAP, BIPAP Needs Home O2 Discharge instructions: No Please Follow Up With: Kelly John PA-C When: Please contact our office at [phone], option #2 to schedule a 2 week follow-up Meaningful Use Info Meaningful Use Meaningful Use Diagnoses (Choose all that apply): None applicable Discharge Plan Admission Admit Date/Time: 01/12/25 09:08 Primary Reason for Your Visit: Acute cholecystitis Attending Provider: Richy Riddle Primary Care Provider: Armand Ta Consulting Providers: Teodoro Mckeon Instructions Additional Instructions / Restrictions: Cholecystectomy Diet ? Start light with soups and soft bland foods. You may advance diet as tolerated. Activity ? You may drive in 3-5 days but not while taking narcotic pain medication. ? I encourage walking. You may go up steps, one at a time. ? Do not swim or use hot tubs for 2 weeks. ? For comfort, you may use warm compresses or ice as needed for 15-20 minutes at a time. Lifting ? You may lift up to 15 pounds for 2 weeks. Dressings/Incision ? You may shower OVER your plastic dressings ? Do NOT tub bathe for 1 week ? Leave plastic dressings on for 2 days. ? When plastic dressings are removed, you will find steri strips. It is okay to continue showering with them in place, pat them dry. ? You may remove steri-strips after 1 week. We recommend getting them soaking wet for easier removal. Medications ? Anesthesia used during surgery and pain medications may cause constipation. I recommend initiating on the day of surgery a fiber supplement like, Metamucil, Citrucel, FiberCon, Benefiber, or a generic form of these medications. 1 heaping tablespoon in water daily. You may continue to utilize any bowel regimen or oral laxatives that you routinely take. ? As long as you are not intolerant to Tylenol, acetaminophen, ibuprofen, Motrin, Advil, Aleve, or similar medications, I would recommend transitioning to these [id number] medicines as soon as possible instead of continued use of narcotic pain medication. Follow up ? You should call [facility] soon after surgery, at [phone] option 2 to make a follow up appointment for 10-14 days after your surgery. Discharge Orders/Prescriptions Prescriptions: New acetaminophen 325 mg Tablet 650 mg PO Q4H PRN PRN (Reason: Pain 1-10 Or Fever) Qty: 0 0RF oxycodone 5 mg Tablet 5 mg PO Q6H PRN PRN (Reason: Pain Score 4-10) 3 Days Qty: 10 0RF Continued cholecalciferol (vitamin D3) 125 mcg (5,000 unit) capsule 125 mcg PO DAILY insulin aspart U-100 [Novolog FlexPen U-100 Insulin] 100 unit/mL (3 mL) insulin pen 30 unit subcut Rx Instructions: before each meal multivitamin Tablet 1 tab PO DAILY vitamin B complex Tablet 1 tab PO DAILY semaglutide 0.5 mg/0.1 mL syringe 44 mg subcut BID Rx Instructions: 44 UNITS atorvastatin 40 mg tablet 40 mg PO DAILY trazodone 50 mg tablet 50 mg PO QHS pantoprazole 40 mg tablet,delayed release (DR/EC) 40 mg PO DAILY losartan 100 mg tablet 100 mg PO DAILY (DME) FreeStyle Justin 2 Sensor Kit MISCELLANEOUS Patient Comments: [NO ORIGINAL SIG] (DME) FreeStyle Justin 2 [place] Misc MISCELLANEOUS Patient Comments: [NO ORIGINAL SIG] levothyroxine [Synthroid] 200 mcg tablet 200 mcg PO DAILY metoprolol succinate 25 mg tablet extended release 24 hr 12.5 mg PO DAILY Qty: 30 0RF venlafaxine 150 mg capsule,extended release 24hr 150 mg PO DAILY zolpidem 10 mg tablet 5 mg PO QHS data transfer cap, degludec,BT Rx Instructions: 44 units morning and at bedtime. Referrals / Follow Up: Armand Ta NP-C [Primary Care Provider, Family Practice] Kelly John PA-C [Med Staff - [facility] Practice Prof, Surgery] - Within 2 Weeks Disposition Disposition (needs filled in before D/C Order can be placed): Home, Self Care Charges/Coding Visit Charges Inpatient E&M: 88225 Disch Hosp (no charge)
[2025-01-14] MEDS: Metoprolol(XL)Succ 25 MG Tablet 12.5 MG PO (08:52)
--- NOTE | 2025-01-14 09:13 | CASEMGMT ---
Addendum entered by Breanna Ho 01/14/25 10:27: DC order cancelled d/t Cr per hospitalist. Original Note: Dx:acute cholecystitis LACE:2 6-Clicks:24 Medical record reviewed and patient evaluated for identification of discharge planning needs. Based on this review, at this time criteria are not present to indicate a need for discharge planning. Will remain available to assist with discharge planning needs as identified or requested. Pt has dc order placed.
--- NOTE | 2025-01-14 09:28 | PCM.PN.HOSP ---
Subjective Subjective Abdominal pain is improved after surgery Objective Data Objective Data Vital Signs: Vital Signs Temp Pulse Resp BP Pulse Ox O2 Del Method O2 Flow Rate 98.3 F 78 18 138/57 H 93 Room Air 2 01/14/25 08:25 01/14/25 08:52 01/14/25 08:26 01/14/25 08:25 01/14/25 08:25 01/14/25 08:26 01/14/25 06:09 Oxygen Flow Rate (L/min) 2 Oxygen Delivery Method Room Air Weight: 217 lb 6.012 oz Body Mass Index (BMI) 39.7 Intake & Output: Intake and Output for Last 24 Hours 01/13/25 01/14/25 01/15/25 02:59 03:59 03:59 Intake Total 1949 4053.34 / 4053.34 200 / 200 Output Total 320 / 320 350 / 350 Balance 1949 3733.34 / 3733.34 -150 / -150 Lab / Micro Data 01/14/25 05:44 01/14/25 05:44 Labs: Laboratory Results - last 24 hr 01/13/25 10:12: POC Glucose 246 H 01/13/25 12:21: POC Glucose 295 H 01/13/25 17:18: POC Glucose 264 H 01/13/25 22:47: POC Glucose 218 H 01/14/25 05:44: WBC 20.9 H, RBC 3.80 L, Hgb 10.6 L, Hct 34.0 L, MCV 89.5, MCH 27.9, MCHC 31.2 L, RDW Std Deviation 46.7 H, RDW Coeff of Betina 14.2, Plt Count 158, MPV 10.5, Immature Gran % (Auto) 0.800, Neut % (Auto) 86.2 H, Lymph % (Auto) 4.8 L, [place] % (Auto) 7.7, Eos % (Auto) 0.3, Baso % (Auto) 0.2, Absolute Neuts (auto) 18.0 H, Absolute Lymphs (auto) 1.00, Nucleated RBC % 0, Differential Comment COMMENT, Sodium 134, Potassium 4.6, Chloride 101, Carbon Dioxide 25.2, Anion Gap 8, BUN 31 H, Creatinine 1.77 H, Estim Creat Clear Calc 30.13 L, Est GFR (MDRD) Non-Af 30 L, BUN/Creatinine Ratio 17.3, Glucose 242 H, Calcium 7.9 01/14/25 06:23: POC Glucose 240 H Radiography Diagnostic Testing: Radiology Impression Cholangiogram 01/13/25 07:00 IMPRESSION: Administrative dictation for fluoroscopy. Please see the operative report for details on the procedure. Reading Location: [facility] Physical Exam Narrative General: Alert, Oriented x3, Cooperative, No apparent distress HEENT: Atraumatic, PERRLA, EOMI, Normocephalic Oral: Moist Mucosa Neck: Supple, No JVD Lungs: Diminished, Normal air movement, No rhonchi, No wheeze, No rales Cardiovascular: Regular rate, Regular Rhythm, Normal S1, Normal S2, No murmurs Abdomen: Soft, mild tenderness to palpation of the right upper quadrant, Non-Distended, No Hepato-splenomegaly Extremities: No edema, Capillary Refill Less than 3 Seconds Skin: No rashes, No breakdown, incision CDI Musculoskeletal: No Tenderness to Palpation of Joints or Extremities Neurological: No focal neurological deficits, moves all extremities Psych/Mental Status: Normal Affect, Appropriate Assessment & Plan Assessment/Plan (1) Acute cholecystitis: PLAN: Plan 1. Acute cholecystitis status post cholecystectomy 01/13/2025/postoperative GODFREY ?Continue with antibiotics ? Pain management per primary ? Continue with Zosyn ?Advance diet as indicated by general surgery ? Continue with IV fluids, will continue to hold her ARB 2. Essential HTN/HLD/history of A-fib ? Had a pacemaker placed as well as an A-fib ablation she was still to come off of her Eliquis she has not been on it for a month ? Will hold her losartan pending surgery but continue with her metoprolol ? She was very hypertensive in the emergency room this was likely related to stress and pain she is doing much better now after pain medication ? Continue with her Lipitor and can likely restart her losartan tomorrow after surgery 3. DM2 ? Continue sliding scale insulin ? Accu-Cheks ? Will monitor and make adjustments as necessary 4. GERD ? Stable ? Continue with her home medications 5. Hypothyroidism ? Stable ? Continue with her Synthroid 6. Anxiety/depression ? Stable ? Continue with her home medications DVT: SCDs Charges/Coding Visit Charges Inpatient E&M: 36167 Subs Hosp L2
[2025-01-14] MEDS: Insulin Glargine-YFGN 100 UNIT/ML Pen 15 UNIT SC ×2 (11:36→21:23)
[2025-01-14] MEDS: 0.9% Saline Lock 10 ML Syringe IV (21:21)
[2025-01-15] VITALS (8 sets, daily range): BP systolic 141–150; BP diastolic 85–96; PULSE 69–90; RESP 16–18; TEMP 36.5–37.1; O2SAT 87–96
[2025-01-15] MEDS: 0.9% Normal Saline (1000mL) 1,000 ML 100 ML IV (01:00)
[2025-01-15] MEDS: Piperacil/Tazobactam 3.375 GM in 0.9% Normal Saline (50mL MB+) 50 ML IV (04:59)
[2025-01-15 07:25] LABS: Hematocrit 31.9 % (37-47); Hemoglobin 10.1 g/dL (12.0-15.0); Immature Granulocytes Count 0.110 X10^3/uL (0.0-0.0); Mean Corp Hgb Conc 31.7 g/dL (32-36); Mean Corpuscular Volume 88.6 fL (81-99); Mean Platelet Vol. 10.8 fl (6.2-12.0); NRBC Flagged by Analyzer 0 % (0-5); Platelet Count 163 K/mm3 (150-450); RBC Distribution Width CV 13.9 % (11.6-14.6); RBC Distribution Width SD 45.2 fl (35.1-43.9); Red Blood Count 3.60 M/mm3 (4.2-5.4); White Blood Count 14.8 K/mm3 (4.4-11.0)
--- NOTE | 2025-01-15 07:28 | PCM.PN.SRG ---
Subjective Subjective Patient is doing well and would like to go home. She reports she is eating and tolerating a diet and having normal bowel movements and urinating. Objective Data Objective Data Vital Signs: Vital Signs Temp Pulse Resp BP Pulse Ox O2 Del Method O2 Flow Rate 97.7 F L 90 16 150/85 H 96 Nasal Cannula 2 01/15/25 03:04 01/15/25 03:04 01/15/25 03:04 01/15/25 03:04 01/15/25 07:19 01/15/25 07:19 01/15/25 07:19 Oxygen Flow Rate (L/min) 2 Oxygen Delivery Method Nasal Cannula Weight: 217 lb 6.012 oz Body Mass Index (BMI) 39.7 Intake & Output: Intake and Output for Last 24 Hours 01/13/25 01/14/25 01/15/25 22:59 23:59 23:59 Intake Total 2771.67 / 3271.67 4031.67 / 4231.67 1400 / 1400 Output Total 320 / 320 350 / 650 1000 / 1000 Balance 2451.67 / 2951.67 3681.67 / 3581.67 400 / 400 Lab / Micro Data 01/15/25 06:30 01/14/25 05:44 Labs: Laboratory Results - last 24 hr 01/14/25 11:31: POC Glucose 263 H 01/14/25 16:35: POC Glucose 420 H 01/14/25 21:22: POC Glucose 274 H 01/15/25 06:30: WBC 14.8 H, RBC 3.60 L, Hgb 10.1 L, Hct 31.9 L, MCV 88.6, MCH 28.1, MCHC 31.7 L, RDW Std Deviation 45.2 H, RDW Coeff of Betina 13.9, Plt Count 163, MPV 10.8, Immature Gran % (Auto) 0.700, Neut % (Auto) 82.6 H, Lymph % (Auto) 6.8 L, [place] % (Auto) 6.6, Eos % (Auto) 2.8, Baso % (Auto) 0.5, Absolute Neuts (auto) 12.2 H, Absolute Lymphs (auto) 1.01, Nucleated RBC % 0 01/15/25 06:37: POC Glucose 240 H Physical Exam Const oriented x3 and no apparent distress Resp normal respiratory effort GI normal to inspection, nondistended, normoactive bowel sounds Assessment & Plan Assessment/Plan (1) Acute cholecystitis: PLAN: The patient's creatinine was elevated yesterday so her discharge was held. Waiting for labs this morning. The patient is doing well and would like to go home today. Richy Riddle MD Pager: [facility] [address] [place] [address], [address] [place] [address] Office:
[2025-01-15 08:10] LABS: Anion Gap 8 (5-15); BUN 31 mg/dL (4-19); BUN/Creat Ratio 21.3 RATIO (10-20); Calcium,Total 8.3 mg/dL (7.6-11.0); Carbon Dioxide 24.2 mmol/L (21.0-32.0); Chloride 101 mmol/L (98-108); Estimated Creatinine Clearance 36.78 ml/min (50-250); Glucose 243 mg/dL (70-99); Potassium 4.3 mmol/L (3.3-5.1)
[2025-01-15] MEDS: Metoprolol(XL)Succ 25 MG Tablet 12.5 MG PO (08:39)
--- NOTE | 2025-01-15 09:41 | PCM.PN.HOSP ---
Subjective Subjective Doing well, white count improving as his renal function. She is able to come down to room air Objective Data Objective Data Vital Signs: Vital Signs Temp Pulse Resp BP Pulse Ox O2 Del Method O2 Flow Rate 98.7 F 69 16 141/96 H 94 Room Air 2 01/15/25 08:35 01/15/25 08:39 01/15/25 08:35 01/15/25 08:35 01/15/25 08:35 01/15/25 08:35 01/15/25 07:19 Oxygen Flow Rate (L/min) 2 Oxygen Delivery Method Room Air Weight: 217 lb 6.012 oz Body Mass Index (BMI) 39.7 Intake & Output: Intake and Output for Last 24 Hours 01/14/25 01/15/25 01/16/25 03:59 03:59 03:59 Intake Total 4053.34 / 4053.34 3750 / 3750 150 / 150 Output Total 320 / 320 650 / 650 700 / 700 Balance 3733.34 / 3733.34 3100 / 3100 -550 / -550 Lab / Micro Data 01/15/25 06:30 01/15/25 06:30 Labs: Laboratory Results - last 24 hr 01/14/25 11:31: POC Glucose 263 H 01/14/25 16:35: POC Glucose 420 H 01/14/25 21:22: POC Glucose 274 H 01/15/25 06:30: WBC 14.8 H, RBC 3.60 L, Hgb 10.1 L, Hct 31.9 L, MCV 88.6, MCH 28.1, MCHC 31.7 L, RDW Std Deviation 45.2 H, RDW Coeff of Betina 13.9, Plt Count 163, MPV 10.8, Immature Gran % (Auto) 0.700, Neut % (Auto) 82.6 H, Lymph % (Auto) 6.8 L, [place] % (Auto) 6.6, Eos % (Auto) 2.8, Baso % (Auto) 0.5, Absolute Neuts (auto) 12.2 H, Absolute Lymphs (auto) 1.01, Nucleated RBC % 0, Sodium 133, Potassium 4.3, Chloride 101, Carbon Dioxide 24.2, Anion Gap 8, BUN 31 H, Creatinine 1.45 H, Estim Creat Clear Calc 36.78 L, Est GFR (MDRD) Non-Af 38 L, BUN/Creatinine Ratio 21.3 H, Glucose 243 H, Calcium 8.3 01/15/25 06:37: POC Glucose 240 H Physical Exam Narrative General: Alert, Oriented x3, Cooperative, No apparent distress HEENT: Atraumatic, PERRLA, EOMI, Normocephalic Oral: Moist Mucosa Neck: Supple, No JVD Lungs: Diminished, Normal air movement, No rhonchi, No wheeze, No rales Cardiovascular: Regular rate, Regular Rhythm, Normal S1, Normal S2, No murmurs Abdomen: Soft, mild tenderness to palpation of the right upper quadrant, Non-Distended, No Hepato-splenomegaly Extremities: No edema, Capillary Refill Less than 3 Seconds Skin: No rashes, No breakdown, incision CDI Musculoskeletal: No Tenderness to Palpation of Joints or Extremities Neurological: No focal neurological deficits, moves all extremities Psych/Mental Status: Normal Affect, Appropriate Assessment & Plan Assessment/Plan (1) Acute cholecystitis: PLAN: Plan 1. Acute cholecystitis status post cholecystectomy 01/13/2025/postoperative GODFREY ?Continue with antibiotics ? Pain management per primary ? Continue with Zosyn ?Advance diet as indicated by general surgery ? Continue with IV fluids, will continue to hold her ARB for a few days on discharge I do recommend outpatient lab work to make sure that the renal function returns to normal ? Stable for discharge from a medical perspective 2. Essential HTN/HLD/history of A-fib ? Had a pacemaker placed as well as an A-fib ablation she was still to come off of her Eliquis she has not been on it for a month ? Will hold her losartan pending surgery but continue with her metoprolol ? She was very hypertensive in the emergency room this was likely related to stress and pain she is doing much better now after pain medication ? Continue with her Lipitor and can likely restart her losartan tomorrow after surgery 3. DM2 ? Continue sliding scale insulin ? Accu-Cheks ? Will monitor and make adjustments as necessary 4. GERD ? Stable ? Continue with her home medications 5. Hypothyroidism ? Stable ? Continue with her Synthroid 6. Anxiety/depression ? Stable ? Continue with her home medications DVT: SCDs Charges/Coding Visit Charges Inpatient E&M: 79853 Subs Hosp L2
--- NOTE | 2025-01-15 10:09 | PHA.DC_ITS ---
Pharmacy DC Med Rec Counseling
--- NOTE | 2025-01-15 10:09 | PHA.DC.MC.R ---
Pharmacy [facility] has performed discharge medication reconciliation and counseling for this patient. The patient's discharge medication list was reviewed for discrepancies and discrepancies were resolved. The patient was counseled on the following discharge medications and changes in medications for homegoing were reviewed. The Reason for Use, instructions for use, and potential side effects were reviewed for all new medications. The patient's questions regarding all of their medications were answered. 1. Acetaminophen 650 mg PO Q4H PRN pain 2. Oxycodone 5 mg PO Q6H PRN pain 3. Amoxicillin/clavulanate 875/125 mg PO BID x 5 days The patient was able to verbally demonstrate an understanding of their discharge medications. Medications at Discharge Home Medications atorvastatin 40 mg tablet 40 mg PO DAILY cholesterol 10/25/23 flash glucose scanning reader (FreeStyle Justin 2 Delton) 10/25/23 flash glucose sensor (FreeStyle Justin 2 Sensor kit) 10/25/23 losartan 100 mg tablet 100 mg PO DAILY blood pressure 10/25/23 Held on 01/15/25. Instructions: Resume on 01/18/25. pantoprazole 40 mg tablet,delayed release 40 mg PO DAILY acid reflux 10/25/23 trazodone 50 mg tablet 50 mg PO QHS sleep 10/25/23 levothyroxine 200 mcg tablet (Synthroid) 200 mcg PO DAILY thyroid 10/26/23 metoprolol succinate 25 mg tablet,extended release 24 hr 12.5 mg (1/2 x 25 mg) PO DAILY #30 tabs 10/27/23 cholecalciferol (vitamin D3) 125 mcg (5,000 unit) capsule 125 mcg PO DAILY 11/10/23 insulin aspart U-100 100 unit/mL (3 mL) subcutaneous pen (Novolog FlexPen U-100 Insulin aspart) 30 unit subcut md ordered 11/10/23 multivitamin 1 tab PO DAILY 11/10/23 venlafaxine 150 mg capsule,extended release 24 hr 150 mg PO DAILY 11/10/23 vitamin B complex 1 tab PO DAILY 11/10/23 semaglutide 0.5 mg/0.1 mL subcutaneous syringe 44 mg subcut BID 10/30/24 zolpidem 10 mg tablet 5 mg PO QHS insomnia 10/30/24 data transfer cap, newludeLINA barriga md ordered 01/12/25 acetaminophen 325 mg tablet 650 mg (2 x 325 mg) PO Q4H PRN PRN Pain 1-10 Or Fever #0 tabs 01/14/25 oxycodone 5 mg tablet 5 mg PO Q6H PRN PRN Pain Score 4-10 3 days #10 tabs 01/14/25 amoxicillin 875 mg-potassium clavulanate 125 mg tablet 1 tab PO BID 5 days #10 tabs 01/15/25
[2025-01-15] MEDS: Insulin Glargine-YFGN 100 UNIT/ML Pen 15 UNIT SC (11:11)
== END 2025-01-15 12:11 | disposition home or self-care (01) | DRG 418 ==
LOC: ED 09:10 → MS3 09:51
PROVIDERS: Family Medicine; Admitting Provider Surgery; Emergency Provider Emergency Medicine; Visit Provider Surgery
PROC: 0FT44ZZ Resection of Gallbladder, Percutaneous Endoscopic Approach (ICD-10-PCS; CPT 47610; principal; 2025-01-13 08:00)
DX: K81.0 Acute cholecystitis (principal); K82.0 Obstruction of gallbladder; N17.9 Acute kidney failure, unspecified; E11.40 Type 2 diabetes mellitus with diabetic neuropathy, unspecified; F32.A Depression, unspecified; E03.9 Hypothyroidism, unspecified; I10 Essential (primary) hypertension; E78.00 Pure hypercholesterolemia, unspecified; K21.9 Gastro-esophageal reflux disease without esophagitis; F41.9 Anxiety disorder, unspecified; Z90.710 Acquired absence of both cervix and uterus; Z79.899 Other long term (current) drug therapy
CPT/HCPCS: 36415; 74177; 74300; 76000; 80048; 80053; 81001; 82962; 83036; 83690; 84443; 85025; 88304; 93005; 94668; 99283; Q9967; A4216; J2405